=== PATIENT | male | born 1955 | race Caucasian/White ===

== ENCOUNTER → 2018-11-14 | Outpatient (CLI) | payer BC ==
--- NOTE | 2018-11-14 09:53 | XR ---
EXAMINATION TYPE: XR chest 2V DATE OF EXAM: 11/14/2018 COMPARISON: None INDICATION: Presurgical clearance TECHNIQUE: Frontal and lateral views of the chest are obtained. Right costophrenic angles clipped fr om the [id number] FINDINGS: The heart size is normal. The pulmonary vasculature is normal. The lungs are clear. IMPRESSION: 1. No acute pulmonary process.
== END | disposition home or self-care (01) ==
LOC: RADXRMAIN 08:50
PROVIDERS: ATTEND Orthopaedic Surgery Orthopaedic Surgery of the Spine
DX: Z01.818 Encounter for other preprocedural examination (principal); Z01.812 Encounter for preprocedural laboratory examination
CPT/HCPCS: 71046; 87070

== ENCOUNTER 2018-11-26 06:40 | Inpatient (IN) | payer BC, MEDICARE ==
[~2018-11-26 06:40] MED LIST: BACITRACIN 50,000 UNIT, POLYMYXIN B 500,000 UNIT in SODIUM CHLORIDE 0.9% IRRIGATIO 1,00... IRRIGATION ONE; LIDOCAINE 1% 20 ML VIAL (10MG/ML) FOR IV START INTRADERMA PRN; ONDANSETRON 4 MG/2 ML VIAL IVP ONE; ceFAZolin IN SWFI 2 GM/20 ML SYRINGE IVP ONE
[2018-11-26] MEDS: LACTATED RINGERS 1,000 ML IV SCH (07:29)
[2018-11-26] MEDS ORDERED: VANCOMYCIN 1,750 MG in SODIUM CHLORIDE 0.9% 250 ML IVPB ONE (07:45)
[2018-11-26] MEDS ORDERED: VANCOMYCIN 1,750 MG in SODIUM CHLORIDE 0.9% 500 ML 500 ML IVPB ONE (07:45)
[2018-11-26] MEDS ORDERED: ROCURONIUM BROMIDE 10 MG/ML 10 ML VIAL IV ONE (08:08)
[2018-11-26] MEDS ORDERED: fentaNYL (PF) 50 MCG/ML 2 ML AMP ONE (08:08)
[2018-11-26] MEDS ORDERED: PROPOFOL 10 MG/ML 20 ML VIAL IV ONE (08:08)
[2018-11-26] MEDS ORDERED: SUCCINYLCHOLINE CHLORIDE 100 MG/5 ML SYR IV ONE (08:08)
[2018-11-26] MEDS ORDERED: HYDROmorphone (PF) 1 MG/ML ONE (08:08)
[2018-11-26] MEDS ORDERED: NEOSTIGMINE 1 MG/ML 10 ML VIAL ONE (08:08)
[2018-11-26] MEDS ORDERED: LIDOCAINE 1% INJ 10MG/ML (20 ML MDV) ONE (08:08)
[2018-11-26] MEDS ORDERED: MIDAZOLAM 2 MG/2 ML VIAL ONE (08:08)
[2018-11-26] MEDS ORDERED: GLYCOPYRROLATE 0.2 MG/ML 2 ML VIAL ONE (08:08)
[2018-11-26] MEDS ORDERED: ePHEDrine SULFATE/0.9% NACL/PF 50 MG/5 ML SYRINGE IV ONE (08:08)
[2018-11-26] MEDS ORDERED: LIDOCAINE 0.5%-EPI 1:200,000 50 ML VIAL SQ ONE ×3 (09:09)
[2018-11-26] MEDS ORDERED: THROMBIN (BOVINE) 5,000 UNIT VIAL MISCELLANE ONE (09:10)
[2018-11-26] MEDS ORDERED: GELATIN SPONGE,ABSORB (LARGE) 1 EACH SPONGE TOPICAL ONE (09:40)
[2018-11-26] MEDS ORDERED: BUPIVACAIN-EPI 0.5%-1:200,000 30 ML VIAL SQ ONE (09:41)
[2018-11-26] MEDS ORDERED: LACTATED RINGERS 1,000 ML IV ONE (10:50)
[2018-11-26] MEDS ORDERED: BENZOCAINE/MENTHOL LOZENG 1 EACH LOZENGE MUCOUS MEM PRN (11:06)
[2018-11-26] MEDS ORDERED: HYDROmorphone 0.5 MG/0.5 ML SYRINGE IVP PRN (11:06)
[2018-11-26] MEDS ORDERED: MAGNESIUM HYDROXIDE 2,400 MG/10 ML CUP PO PRN (11:06)
[2018-11-26] MEDS ORDERED: HYDROcodone/APAP 5-325MG 1 EACH TAB PO PRN (11:07)
[2018-11-26] MEDS ORDERED: ONDANSETRON 4 MG/2 ML VIAL IVP PRN (11:07)
[2018-11-26] MEDS ORDERED: ASPIRIN-ACET-CAFF 250-250-65MG 1 EACH TAB PO PRN (11:09)
--- NOTE | 2018-11-26 11:16 | P.OP ---
Date of Procedure: 11/26/18 Preoperative Diagnosis: Spondylolisthesis, grade 2 L4 5 Severe spinal stenosis L4 5 Herniated nuclear pulposus L4 5 Lower extremity radiculopathy Lower extremity weakness Neurogenic claudication Postoperative Diagnosis: Same Anesthesia: GETA Pathology: none sent Condition: stable Disposition: PACU Description of Procedure: DESCRIPTION OF PROCEDURE(S): BRIEF OPERATIVE NOTE Preoperative Diagnosis: Spondylolisthesis, grade 2 L4 5 Severe spinal stenosis L4 5 Herniated nuclear pulposus L4 5 Lower extremity radiculopathy Lower extremity weakness Neurogenic claudication Postoperative Diagnosis: Same Procedure: Laminectomy and decompression L4 5 Minimally invasive Posterior lateral decompression and facet fusion L4 5 Minimally invasive Transforaminal lumbar interbody fusion for a 360 fusion L4 5 Discectomy for decompression L4 5 Placement of interbody graft L4 5 Local autogenous bone grafting Harvesting of bone marrow aspirate via the pedicle of L4 Use of Cell Saver Use of bone graft extenders Surgeon: Dr. Rios Audio Director: Inder Faust is present throughout the entire the case persistence during positioning, dissection, exposure, visualization, and all crucial elements of the case as well as closure. Anesthesia: General anesthesia Estimated blood loss: approximately 100 mL Complications: None apparent Components implanted: K2M minimally invasive [place] pedicle screw system with [place] interbody cage and 1 osteoamp sponge and 15 mL of DBX bone fibers to supplement the local autogenous bone graft and bone marrow aspirate Disposition: To recovery room in good stable condition. OPERATIVE INDICATIONS The patient has had long-standing issues in their lower back and lower extremities. he's been having severe worsening in great difficulty with his ability to mobilize and ambulate due to his back and lower extremities. The patient has been through conservative treatment. he is not having any lasting benefit despite aggressive conservative treatment. His found have severe spinal stenosis at L4 5 with spondylolisthesis and dynamic instability at L4 5 which correlate well with his low back and lower extremity symptoms. He is having worsening of his lower extremities and weakness in his bilateral lower extremities which: Well with his low back issues. We discussed various treatment options including surgery, and the patient wishes to proceed with cornejo rgery We discussed the risk, patient's alternatives and benefits of surgery including but not limited to, risk of bleeding risk of infection, risk of need for further surgery, risk of decreased, loss of motion, muscle function, malunion nonunion, hardware failure, nerve damage, paralysis, heart attack, blindness and . OPERATIVE SUMMARY After discussing all the risks, patient alternatives and benefits at length, the patient elected to proceed with surgical intervention, signed informed consent, and presented for their procedure. The patient was seen and examined in the preoperative holding area and the surgical site was marked. The patient was given antibiotics and brought to the operating room. The patient was sedated and intubated by anesthesia in standard fashion. The patient was positioned on to the operating room table in a prone position on the appropriate frame which was well-padded and well molded. We were careful to pad any bony prominences and pressure points. We were careful to maintain the patient's cervical spine and good neutral alignment and position throughout. The patient was prepped and draped in a normal standard fashion. An appropriate timeout and keystone protocol performed. We were able to proceed with the surgery. The local wound area was infiltrated with local anesthetic. I was able utilize C-arm guidance to establish appropriate position over the pedicles bilaterally at the appropriate levelsAt L4 5 . With the appropriate levels confirmed was able to make small stab incisions over the appropriate pedicle sites bilaterally. Utilizing C-arm in his house able to establish a Jamshidi needle over the lateral aspect of the pedicle and advanced the trocar into the pedicle being careful not to breech superiorly inferiorly medially or laterally. Position was confirmed regularly with AP and lateral images on C- arm. I was able to establish the trocar into the pedicle appropriately into the posterior aspect of the vertebral body bilaterally at the appropriate levels. This was done at each of the pedicle positions and each of the vertebrae. at L4 on the right I was able to withdraw approximately 30 mL of bone marrow aspirate for use as autograft later in the case. I was able place the guidewire into the trocar and into the vertebral body appropriately under C-arm guidance. Dissection was taken down over the wire to the appropriate starting position for the screw placed. The appropriate length screw was chosen, threaded over the guidewire and screwed appropriately into the pedicle and vertebral body under C- arm guidance in excellent alignment and position with good bony purchase. This is done at each of the screw sites at the appropriate levelsAt L4 and L5 . With the screws intact I extended the incision to connect the screw hole sites on the most symptomatic sideOn the right . I dissected down to establish access over the pars and lamina to the base of the spinous process. I was able to expose the facet joint. The capsule the facet was taken down and showed some facet arthrosis at the joint. I was able to use a combination of curettes and Kerrison rongeurs and a high-speed drill to take down the facet joint and do a facetectomy. Partial laminectomy was also performed. I was able get excellent foraminal decompression and central decompression with undermining across midline to perform a laminectomy centrally and contralaterally. As able get good central decompression. The ligamentum flavum was taken down to further decompress centrally and at bilateral neural foramen. note was made of severe central and bilateral foraminal stenosis at L4 5, which was remedied with the decompression as stated above. I was able to expose the disc space and visualize the traversing nerve root. Note was made of some disc protrusion at the level causing further compression of the nerve root. I was able to establish a annulotomy at the appropriate level protecting soft tissue and neural structures. Note was made of some disc desiccation at the disc. I performed a complete discectomy with accommodation of curettes and rasps and scrapers. I was able get good endplate preparation at the disc space. I sized for the appropriate size interbody spacer protecting the soft tissue and neural structures. The wound was copiously irrigated and suctioned dry. There is no evidence of any dural tear or leak. I was able to pack the disc space with local autogenous bone graft as well as a small amount of bone graft which was also placed into the interbody cage itself. Protecting the soft tissue structures and neural structures I was able place the interbody cage in good alignment and good position with good fit and fill at the interbody space. His issues was confirmed with C-arm guidance. Good hemostasis maintained. There is no evidence of any dural tear or leak. The wound was irrigated and suctioned dry. With the hardware intact, intraoperative C-arm imaging was again taken which showed good alignment and position of the hardware at the appropriate levelsAt L4 and L5 . We were then able to measure, contour and place the rods and appropriate hardware bilaterally. I was able to place capcrews, tighten them down, and torque them with the torque screwdriver appropriately. I was able to get significant improved spacing at the disc space and improvement of the listhesis as well with the fixation. With this intact I was able to place the local autogenous bone graft with additional bone graft enhancer as necessary into the posterior lateral gutters over the decorticated transverse processes. The remainder of the bone graft was placed over the facet joint on the contralateral side after taking down the facet joint capsule. With the bone graft intact, a stable construct, and good decompression at the appropriate levels, we were able to proceed with closure. Good hemostasis was maintained. There is no evidence of dural tear or leak. The fascia was closed for a ruben ertight closure. he subcuticular tissue was closed with absorbable suture. The wound was cleaned and dried and dressed with the appropriate dressing. The drapes were broken down. The patient was gently rolled back onto their hospital bed being careful to maintain their cervical spine and good neutral alignment and position. They were woken up by anesthesia, extubated, and brought to the recovery room in good stable condition. The patient will be admitted to the hospital for appropriate postoperative care, medical management and monitoring. We will continue to follow them closely about the postoperative course.
[2018-11-26] MEDS: HYDROmorphone 0.5 MG/0.5 ML SYRINGE IVP PRN ×4 (11:46→12:42)
--- NOTE | 2018-11-26 13:21 | FL ---
EXAMINATION TYPE: FL guidance operating room, XR lumbar spine 2 or 3V DATE OF EXAM: 11/26/2018 CLINICAL HISTORY: Low back pain. TECHNIQUE: Fluoroscopy. Lumbar spine intraoperative 2 views. COMPARISON: None. FINDINGS: Fluoroscopic guidance was provided during minimally invasive lumbar fusion surgical proced ure performed by Dr. Rios. A total of 1.25 minutes of fluoroscopic time was utilized in total durin g the procedure and 2 spot images was acquired. Images acquired show placement of posterior bilateral interpedicular rods and screws with metallic di sc material at L4-L5 level. IMPRESSION: As Above.
[2018-11-26] MEDS: HYDROcodone/APAP 5-325MG 1 EACH TAB PO PRN ×2 (15:07→20:22)
[2018-11-26 16:13] VITALS: BMI 33.7
[2018-11-26] MEDS: SODIUM CHLORIDE 0.9% 1,000 ML IV SCH (18:43)
[2018-11-26] MEDS: hydrALAZINE HCL 50 MG TAB PO SCH (20:23)
[2018-11-26] MEDS: MUPIROCIN 2% OINT 22 GM TUBE NASAL SCH (20:23)
[2018-11-26] MEDS ORDERED: NON-FORMULARY DRUG (Fish Oil/Dha/Epa [Fish Oil 1,200 Mg Fish Oil] 1 EACH) PO SCH (21:00)
[2018-11-26] MEDS: HYDROmorphone 1 MG/ML 1 ML SYRINGE IVP PRN (22:23)
[2018-11-27] MEDS: LACTATED RINGERS 1,000 ML IV SCH (00:36)
[2018-11-27] MEDS: SODIUM CHLORIDE 0.9% 1,000 ML IV SCH ×2 (00:36→15:04)
[2018-11-27] MEDS: HYDROcodone/APAP 5-325MG 1 EACH TAB PO PRN ×5 (01:02→19:16)
[2018-11-27] MEDS: HYDROmorphone 1 MG/ML 1 ML SYRINGE IVP PRN ×3 (02:13→09:15)
[2018-11-27] MEDS: SENNOSIDES-DOCUSATE SODIUM 1 EACH TAB PO SCH (09:02)
[2018-11-27 09:05] LABS: Basophils % (A) 0 %; Eosinophils # (A) 0.3 k/uL (0-0.7); Eosinophils % (A) 3 %; HCT 41.3 % (39.0-53.0); HGB 13.5 gm/dL (13.0-17.5); Lymphocytes # (A) 0.8 k/uL (1.0-4.8); Lymphocytes % (A) 6 %; MCH 30.2 pg (25.0-35.0); MCHC 32.7 g/dL (31.0-37.0); MCV 92.2 fL (80.0-100.0); Mean Platelet Volume 7.2; Monocytes # (A) 0.8 k/uL (0-1.0); Monocytes % (A) 6 %; Neutrophils # (A) 11.4 k/uL (1.3-7.7); Neutrophils % (A) 85 %; Platelet Count 171 k/uL (150-450); RBC 4.48 m/uL (4.30-5.90); RDW 12.9 % (11.5-15.5); WBC 13.4 k/uL (3.8-10.6)
[2018-11-27] MEDS: amLODIPine 10 MG TAB PO SCH (09:09)
[2018-11-27] MEDS: METOPROLOL SUCCINATE (ER) 100 MG TAB.ER.24H PO SCH (09:10)
[2018-11-27] MEDS: MULTIVITAMINS, THERA 1 EACH TAB PO SCH (09:10)
[2018-11-27] MEDS: hydrALAZINE HCL 50 MG TAB PO SCH ×2 (09:10→20:38)
[2018-11-27] MEDS: LOSARTAN 50 MG TAB PO SCH (09:10)
[2018-11-27] MEDS: FLUTICASONE 50MCG/SPRAY NASAL 16GM EA NOSTRIL SCH (09:14)
[2018-11-27] MEDS: MUPIROCIN 2% OINT 22 GM TUBE NASAL SCH ×2 (09:14→20:37)
[2018-11-27 09:26] LABS: Anion Gap 6 mmol/L; Blood Urea Nitrogen 10 mg/dL (9-20); Calcium 8.7 mg/dL (8.4-10.2); Carbon Dioxide 28 mmol/L (22-30); Chloride 102 mmol/L (98-107); Glucose 126 mg/dL (74-99); Sodium 136 mmol/L (137-145)
[2018-11-27] MEDS ORDERED: methylPREDNISolone ACETATE 80 MG/ML 1 ML VIAL INTRAARTIC STA (11:18)
--- NOTE | 2018-11-27 11:53 | P.PN ---
Progress Note - Text Progress Note Date: 11/27/18 Postoperative day #1 Patient is seen and examined today at bedside. The patient has some pain around the surgical site as expected. Pain is being controlled with medication. He is only able to get a marginally is having significant pain in his right knee. His history of significant arthritis at his right knee and occasional swelling in his right knee. He is having hard time bearing weight on his right knee. He denies any numbness tingling. He says his back is feeling decent but sore. He denies any new numbness tingling or weakness. Physical Exam Afebrile with stable vital signs Abdomen is soft nontender. Chest has good excursion deep and space expiration The incision site is clean dry and intact. No erythema there is no purulence. The sites are essentially clean there is no active drainage. Extremities have not had neurologic change from prior to surgery. He has sustai roman dorsiflexion plantar flexion and EHL intact Calves and thighs were soft nontender without evidence of DVT. At the right knee there is new effusion at the right knee. There is no erythema there is no significant warmth. He has tension with bending. There is no pain at his calf or thigh. Assessment/Plan Postoperative day #1 status post minimally invasive decompression and fusion at L4 5 for his severe spinal stenosis with spondylolisthesis and neurogenic claudication lower extremity radiculopathy Acute new sterile reactive synovitis at the right knee Patient is progressing as expected from the surgery. In terms of his back and we will continue to try to mobilize him for his back We will continue to increase the patient's mobilization with therapy. The patient had significant increased difficulty with his mobilization due to his right knee. He has reactive sterile synovitis at his right knee due to his significant arthritis and he has having an acute flareup. I think that he can do well with a aspiration of the fluid to release some attention and injection of methylprednisolone to see if that helps alleviate and settle down some of the reactive synovitis at his right knee. I discussed this with him. He has had these injections in the past and has done well with them. I answered his questions regard to the procedure and today at bedside using sterile technique I aspirated approximately 30 mL of sterile straw-colored synovial fluid. There is some mild blood tinging. There is no purulence or no pus. After the aspiration I injected a Kristi 80 mg of methylprednisolone. Patient tolerated well and had some relief of his symptoms. It is okay for him to continue to mobilize with weightbearing as tolerated right leg. We will continue pain control with oral or IV medications. We'll continue to follow patient closely.
--- NOTE | 2018-11-27 19:56 | CONS ---
CONSULTATION DATE OF CONSULTATION: November 27, 2018. REASON FOR CONSULTATION: Medical management requested by Dr. Rios. CONSULTATIONS: This is a pleasant 63 -year-old patient of Dr. Angie Willson. Chronic stable medical conditions include hypertension, hyperlipidemia, osteoarthritis. The patient has significant lumbar pathology with pain radiating down to both the legs making it some trouble walking. This has been going on for quite some time. He has tried different pain medication, not helping. The symptoms are worse with activity, better with rest and the patient's walking was affected significantly. The patient's surgical intervention for the same. Post surgery some pain is present. No nausea, vomiting. The patient did sit at the edge of the bed. Earlier today, patient's right knee became inflamed. Dr. Rios happened to be there and the knee was drained. Some steroid injection was given. The patient has arthritis of both the knees. No fever. No chills. REVIEW OF SYSTEMS: CONSTITUTIONAL: None. HEENT: None. RESPIRATORY: None. GASTROINTESTINAL: None. GENITOURINARY: None. MUSCULOSKELETAL: Arthritic pain in different joints. DERMATOLOGICAL, HEMATOLOGIC, LYMPHATIC: none. PSYCHIATRY: None. NEUROLOGICAL: None. PAST MEDICAL HISTORY: Of hypertension, hyperlipidemia, osteoarthritis, CA prostate, treated with surgery. PAST SURGICAL HISTORY: Joint replacement, prostate surgery, right hip replacement, prostatectomy, retinal detachment, right knee cartilage removed. SOCIAL HISTORY: No smoking. Smokes cigar occasionally. 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 FAMILY HISTORY: Reviewed, noncontributory presentation. HOME MEDICATIONS: 1. Hydralazine 50 mg b.i.d. 2. Amlodipine 10 mg p.o. daily. 3. Bactroban 2% topically nasal b.i.d. 4. Centrum Silver 1 tablet p.o. daily. 5. Toprol-XL 100 mg p.o. daily. 6. Cozaar 100 mg p.o. daily. 7. Ibuprofen 600 mg b.i.d. p.r.n. 8. Flonase 1 spray each nostril daily. 9. Fish oil 1 capsule p.o. b.i.d. 10.Excedrin Extra Strength 1 tablet p.o. b.i.d. p.r.n. ALLERGIES: None. PHYSICAL EXAMINATION: VITAL SIGNS: Temperature 99.1, pulse 99, respiratory rate 14, blood pressure 138/74, pulse ox 94 percent on room air. GENERAL APPEARANCE: Well built, BMI 33, lying in bed, awake. EYES: Pupils equal. Conjunctivae normal. HEENT: External appearance of nose and ears normal. Oral cavity normal. NECK: JVD not raised. Mass not palpable. RESPIRATORY: Effort normal. LUNGS: Fair air entry. CARDIOVASCULAR: 1st and 2nd sounds normal. No edema. ABDOMEN: Soft, nontender. Liver and spleen not palpable. LYMPHATICS: No lymph nodes palpable in the neck and axilla. PSYCHIATRY: Alert and oriented x3. Mood and affect is normal. NEUROLOGICAL: Pupils equal. Cranial nerves grossly intact. Power and sensation grossly intact. INVESTIGATIONS: White count 13.4, hemoglobin 13.5. Potassium 4.0. BUN and creatinine is normal. ASSESSMENT: 1. Primary osteoarthritis multiple joints. 2. Hyperlipidemia. 3. Essential hypertension. 4. Obesity, BMI 33.0. 5. Status post lumbar surgery for severe spinal stenosis L4-L5 lower extremity radiculopathy and weakness and neurogenic claudication. PLAN: Home medications resumed. Pain control is in place. Encouraged activity. Patient also admitted. Venodyne boots for DVT prophylaxis. Care was discussed with the patient. Questions were answered. Thank you Dr. Rios. Copy to Angie Willson. MMODL / IJN: [id number] /
[2018-11-28] MEDS: HYDROcodone/APAP 5-325MG 1 EACH TAB PO PRN ×4 (00:14→23:03)
[2018-11-28] MEDS: LACTATED RINGERS 1,000 ML IV SCH (07:48)
[2018-11-28] MEDS: METOPROLOL SUCCINATE (ER) 100 MG TAB.ER.24H PO SCH (08:17)
[2018-11-28] MEDS: hydrALAZINE HCL 50 MG TAB PO SCH ×2 (08:17→21:21)
[2018-11-28] MEDS: amLODIPine 10 MG TAB PO SCH (08:17)
[2018-11-28] MEDS: LOSARTAN 50 MG TAB PO SCH (08:17)
[2018-11-28] MEDS: SENNOSIDES-DOCUSATE SODIUM 1 EACH TAB PO SCH (08:18)
[2018-11-28] MEDS: SODIUM CHLORIDE 0.9% 1,000 ML IV SCH (08:18)
[2018-11-28] MEDS: MUPIROCIN 2% OINT 22 GM TUBE NASAL SCH ×2 (08:24→21:21)
[2018-11-28] MEDS: FLUTICASONE 50MCG/SPRAY NASAL 16GM EA NOSTRIL SCH (08:24)
--- NOTE | 2018-11-28 09:06 | P.PN ---
Progress Note - Text Progress Note Date: 11/28/18 Orthopedic Spine Patient is a pleasant 63-year-old who is seen and examined at the bedside following posterior lateral decompression and fusion performed Saturday. Patient states they are doing well postsurgically. Yesterday he was experiencing significant pain and swelling at the right knee. He underwent drainage with injection of the right knee. He continues to have some mild swelling of the right knee. He feels his pain is much better controlled. He has been able to transfer to the bedside commode. He is passing gas but has not had a bowel movement postoperatively. He does feel he is improving as compared to yesterday. His pain continues to be adequately controlled. Currently does not complain of nausea, vomiting, fever, or chills. Patient is eating and voiding freely without difficulty. Physical Exam Lumbar Fusion: Status post surgical day number 2 Patient is awake, alert, and oriented 3 Vital signs stable Good chest excursion with deep inspiration and expiration Dorsiflexion, plantarflexion, and extensor hallucis longus positive sustained bilaterally No signs or symptoms of DVT; no calf pain; pneumatic cuffs intact bilateral lower extremities Dressing is clean, dry, and intact; no erythema, purulence, or signs of infection Evidence of some mild swelling over the right knee most significantly at the anterior lateral knee No significant pain with palpation over the right knee No evidence of significant erythema, bruising, or obvious sign of infection of the right knee Neurovascularly intact bilaterally lower extremities Assessment: L4-5 Minimally invasive posterior lateral decompression and fusion with transforaminal lumbar interbody fusion Low back pain L4-5 spondylolisthesis Lower extremity radiculopathy and weakness Neurogenic claudication Right knee reactive synovitis Plan: 1. Ambulate as tolerated; work with Physical Therapy to increase mobilization 2. Continue pain control with IV and oral medications; we'll plan to start weaning the patient off of IV pain medications in anticipation for discharge; patient continues to improve we may plan for discharge home as early as tomorrow, 11/29/2018 3. Dressing changed to Telfa and Tegaderm 4. Medical management can continue to manage patient for patient's other medical issues 5. We will continue to follow the patient closely 6. Patient can follow-up with Inder Mills PA-C or Dr. Ivan Rios at [facility] in 2-3 weeks following discharge
[2018-11-28] MEDS: MULTIVITAMINS, THERA 1 EACH TAB PO SCH (12:14)
--- NOTE | 2018-11-28 18:53 | PN ---
PROGRESS NOTE DATE OF SERVICE: 11/28/2018 PRESENTING COMPLAINT: Back surgery. INTERVAL HISTORY: Patient is status post lumbar surgery, doing better; did sit up on a chair. Did walk a few steps. Has not had a bowel movement. Pain is somewhat better controlled. Did tolerate some diet. at the bedside. REVIEW OF SYSTEMS: Done for constitutional, cardiovascular, GI, pulmonary; relevant findings as above. CURRENT MEDICATIONS: Reviewed. They include Dilaudid. PHYSICAL EXAMINATION: Temperature 98.4, pulse 57, respiration 18, blood pressure 143/62, pulse 95% on room air. GENERAL APPEARANCE: Sitting up on a chair, comfortable. EYES: Pupils equal. Conjunctivae normal. NECK: JVD not raised. Mass not palpable. RESPIRATORY: Effort normal. Lungs are clear. CARDIOVASCULAR: First and second sounds normal. No edema. ABDOMEN: Soft, non-tender. Liver and spleen not palpable. PSYCHIATRY: Alert and oriented x3. Mood and affect normal. INVESTIGATIONS: No blood work from today. ASSESSMENT: 1. Status post lumbar surgery for severe spinal stenosis, L4, L5, lower extremity radiculopathy, weakness and neurogenic claudication. 2. Obesity; body mass index 33. 3. Essential hypertension. 4. Hyperlipidemia. 5. Primary osteoarthritis. PLAN: Continue current medication and treatment plan. Activity encouraged. Care was discussed with the patient and his . ARUN / CIERRA: [id number] /
[2018-11-29] MEDS: HYDROcodone/APAP 5-325MG 1 EACH TAB PO PRN ×5 (04:21→21:06)
[2018-11-29] MEDS: MUPIROCIN 2% OINT 22 GM TUBE NASAL SCH ×2 (08:23→21:00)
[2018-11-29] MEDS: FLUTICASONE 50MCG/SPRAY NASAL 16GM EA NOSTRIL SCH (08:23)
[2018-11-29] MEDS: amLODIPine 10 MG TAB PO SCH (08:24)
[2018-11-29] MEDS: METOPROLOL SUCCINATE (ER) 100 MG TAB.ER.24H PO SCH (08:24)
[2018-11-29] MEDS: LOSARTAN 50 MG TAB PO SCH (08:24)
[2018-11-29] MEDS: hydrALAZINE HCL 50 MG TAB PO SCH ×2 (08:24→20:50)
[2018-11-29] MEDS: SENNOSIDES-DOCUSATE SODIUM 1 EACH TAB PO SCH (08:24)
--- NOTE | 2018-11-29 10:01 | P.PN ---
Progress Note - Text Progress Note Date: 11/29/18 Orthopedic Spine Patient is a pleasant 63-year-old who is seen and examined at the bedside following posterior lateral decompression and fusion performed Saturday. Patient states they are doing well postsurgically. Since being seen and examined yesterday he has been able to increase his mobility further. He has been able to transfer to the bedside commode at bedside chair. He continues work with physical therapy. He continues to have some mild swelling of the right knee. He feels his pain is much better controlled. He does feel he is improving as compared to yesterday. His pain continues to be adequately controlled. Currently does not complain of nausea, vomiting, fever, or chills. Patient is eating and voiding freely without difficulty. If he is able to continue improving today he feels he would be ready for discharge home tomorrow. He has been using a walker to aid in ambulation. Physical Exam Lumbar Fusion: Status post surgical day number 3 Patient is awake, alert, and oriented 3 Vital signs stable Good chest excursion with deep inspiration and expiration Dorsiflexion, plantarflexion, and extensor hallucis longus positive sustained bilaterally No signs or symptoms of DVT; no calf pain; pneumatic cuffs intact bilateral lower extremities Dressing is clean, dry, and intact; no erythema, purulence, or signs of infection Evidence of some mild swelling over the right knee most significantly at the anterior lateral knee No significant pain with palpation over the right knee No evidence of significant erythema, bruising, or obvious sign of infection of the right knee Neurovascularly intact bilaterally lower extremities Assessment: L4-5 Minimally invasive posterior lateral decompression and fusion with transforaminal lumbar interbody fusion Low back pain L4-5 spondylolisthesis Lower extremity radiculopathy and weakness Neurogenic claudication Right knee reactive synovitis Plan: 1. Ambulate as tolerated; work with Physical Therapy to increase mobilization 2. Continue pain control with IV and oral medications; we'll continue weaning the patient off of IV pain medications in anticipation for discharge; patient continues to improve we may plan for discharge home as early as tomorrow, 11/30/2018 3. Dressing to remain intact with Telfa and Tegaderm 4. Medical management can continue to manage patient for patient's other medical issues 5. We will continue to follow the patient closely 6. Patient can follow-up with Inder Mills PA-C or Dr. Ivan Rios at [facility] in 2-3 weeks following discharge
[2018-11-29] MEDS: MULTIVITAMINS, THERA 1 EACH TAB PO SCH (10:58)
--- NOTE | 2018-11-29 22:55 | PN ---
PROGRESS NOTE DATE OF SERVICE: 11/29/2018 PRESENTING COMPLAINT: Back surgery. INTERVAL HISTORY: Patient is status post lumbar surgery. Continues to improve. Did walk quite a bit today. Pain is much better controlled. Tolerating a diet. No fever. No chills. Overall feeling better. REVIEW OF SYSTEMS: Done for constitutional, cardiovascular, GI, pulmonary, musculoskeletal and relevant findings as above. CURRENT MEDICATIONS: Reviewed. PHYSICAL EXAMINATION: VITAL SIGNS: Temperature 98.5, pulse 98, respiration 16, blood pressure 115/88, pulse ox 93 percent on room air. GENERAL APPEARANCE: Sitting up comfortable. EYES: Pupils equal. Conjunctivae normal. NECK: JVD not raised. Mass not palpable. RESPIRATORY: Effort normal. LUNGS are clear. CARDIOVASCULAR: First and second sounds normal. No edema. ABDOMEN: Soft, nontender. Liver and spleen not palpable. PSYCHIATRY: Alert and oriented x3. Mood and affect normal. INVESTIGATIONS: No blood work from today. ASSESSMENT: 1. Status post lumbar surgery for severe spinal stenosis, L4-L5 lower extremity radiculopathy, weakness and neurogenic claudication. 2. Obesity BMI 33. 3. Essential hypertension. 4. Hyperlipidemia. 5. Primary osteoarthritis. PLAN: Overall patient is doing much better. Care was discussed with the patient. MMODL / IJN: [id number] /
[2018-11-30] MEDS: HYDROcodone/APAP 5-325MG 1 EACH TAB PO PRN ×4 (01:56→15:41)
[2018-11-30 07:46] VITALS: RESP 15
[2018-11-30] MEDS: FLUTICASONE 50MCG/SPRAY NASAL 16GM EA NOSTRIL SCH (08:00)
[2018-11-30] MEDS: MUPIROCIN 2% OINT 22 GM TUBE NASAL SCH (08:00)
[2018-11-30] MEDS: METOPROLOL SUCCINATE (ER) 100 MG TAB.ER.24H PO SCH (08:00)
[2018-11-30] MEDS: hydrALAZINE HCL 50 MG TAB PO SCH (08:01)
[2018-11-30] MEDS: amLODIPine 10 MG TAB PO SCH (08:01)
[2018-11-30] MEDS: LOSARTAN 50 MG TAB PO SCH (08:01)
[2018-11-30] MEDS: SENNOSIDES-DOCUSATE SODIUM 1 EACH TAB PO SCH (08:01)
--- NOTE | 2018-11-30 11:26 | P.DS ---
<Inder Mills - Last Filed: 11/30/18 11:22> Providers Expected date of discharge: 11/30/18 - Discharge Diagnosis(es) (1) Spondylolisthesis, lumbar region Status: Acute (2) Radiculopathy with lower extremity symptoms Status: Acute (3) Lower extremity weakness Status: Acute (4) Right knee pain Status: Acute (5) Status post lumbar spine surgery for decompression of spinal cord Status: Acute (6) Hypertension Status: Acute (7) Hyperlipidemia Status: Acute Hospital Course: This is a pleasant 63-year-old male who presented with L4-5 grade 2 spondylolisthesis, herniated nucleus pulposus, and severe spinal canal stenosis with lower extremity weakness and radiculopathy and neurogenic claudication who failed outpatient conservative therapy. He was admitted for an L4-5 minimally invasive posterior lateral decompression and fusion with transforaminal lumbar interbody fusion. The patient tolerated the procedure well and did well postoperatively. He was having some difficulty with reactive synovitis of the right knee with swelling and pain postoperatively. He went drainage and injection in the right knee and has had significant improvement of his symptoms since that time. He has been able to increase his ambulation. His pain at the surgical sites and at the right knee has been adequately controlled. He's been able to adequately to the hallways. He feels he is ready for discharge. Condition on day of discharge stable. Patient will be discharged home. Patient was cleared preoperatively for surgery by Dr. Willson. Patient currently denies any nausea, vomiting, fever, or chills. Patient is eating and voiding freely without difficulty. Patient may shower Tegaderm dressing intact. Patient may remove Tegaderm dressing in 1-2 days and shower without a dressing at that time. Patient should keep Steri-Strips intact and allow them to fall off naturally. Patient should refrain from driving until at least after their first follow-up appointment in the office. Patient should avoid excessive bending, lifting, and twisting; no lifting greater than 10 pounds. MAPS has been reviewed today, 11/30/2018, with an Overall Overdose Risk Score of 000. Patient is not in the MAPS system. An "Opiod Start Talking" Form has been signed by the patient and myself in place in the patient's chart. A prescription has been written for Lueders 5 mg/325 mg take 1-2 tabs every 6 hours as needed for pain, dispensed #56. Patient may resume other previously prescribed home medications while avoiding anti-inflammatories over the first 6 weeks postoperatively. Physical Exam on day of discharge: Patient is awake, alert, and oriented 3 Vital signs stable Good chest excursion with deep inspiration and expiration Abdomen soft nontender No signs or symptoms of DVT; no calf pain Extensor hallucis longus, plantarflexion, and dorsiflexion positive sustained bilateral lower extremities No significant swelling over the right knee No significant pain on palpation of the right knee No evidence of erythema or bruising over the right knee Active range of motion right knee without significant difficulty Incision is clean, dry, and intact; no erythema, purulence, or signs of infection Tegaderm dressing and non-stick Telfa intact Procedures: L4-5 minimally invasive posterior lateral decompression and fusion with t ransforaminal lumbar interbody fusion Drainage and injection at the right knee Patient Condition at Discharge: Stable Plan - Discharge Summary Discharge Rx Participant: No New Discharge Prescriptions: New Hydrocodone/Acetaminophen [Lueders 5-325] 1 - 2 each PO Q6HR PRN #56 tab PRN Reason: Pain Continue hydrALAZINE HCL [Apresoline] 50 mg PO BID Aspirin/Acetaminophen/Caffeine [Excedrin Extra Strength Caplet] 1 tab PO BID PRN PRN Reason: Pain Losartan Potassium [Cozaar] 100 mg PO QAM Fluticasone Nasal [place] [Flonase Nasal [place]] 1 spray EA NOSTRIL DAILY amLODIPine BESYLATE 10 mg PO QAM Metoprolol Succinate (ER) [Toprol XL] 100 mg PO QAM Multivit-Min/FA/Lycopen/Lutein [Centrum Silver Men Tablet] 1 tab PO DAILY Fish Oil/Dha/Epa [Fish Oil 1,200 mg Fish Oil] 1 cap PO BID Mupirocin 2% Oint [Bactroban 2% Oint] 1 applic NASAL BID Discontinued Ibuprofen 600 mg PO BID PRN PRN Reason: Pain Discharge Medication List Aspirin/Acetaminophen/Caffeine [Excedrin Extra Strength Caplet] 1 tab PO BID PRN 11/14/18 [History] Fish Oil/Dha/Epa [Fish Oil 1,200 mg Fish Oil] 1 cap PO BID 11/14/18 [History] Fluticasone Nasal [place] [Flonase Nasal [place]] 1 spray EA NOSTRIL DAILY 11/14/18 [History] Losartan Potassium [Cozaar] 100 mg PO QAM 11/14/18 [History] Metoprolol Succinate (ER) [Toprol XL] 100 mg PO QAM 11/14/18 [History] Multivit-Min/FA/Lycopen/Lutein [Centrum Silver Men Tablet] 1 tab PO DAILY 11/14/18 [History] amLODIPine BESYLATE 10 mg PO QAM 11/14/18 [History] hydrALAZINE HCL [Apresoline] 50 mg PO BID 11/14/18 [History] Mupirocin 2% Oint [Bactroban 2% Oint] 1 applic NASAL BID 11/25/18 [History] Hydrocodone/Acetaminophen [Lueders 5-325] 1 - 2 each PO Q6HR PRN #56 tab 11/30/18 [Rx] Follow up Appointment(s)/Referral(s): Inder Mills, MADAN [PHYSICIAN [employer] WORKER] - 2 Weeks (Patient may follow-up with Inder Mills PA-C or Dr. Ivan Rios at [facility] in 2-3 weeks following discharge. ) Vernell Mcmahan, [NON-STAFF] - As Needed Patient Instructions/Handouts: Laminectomy (DC) Activity/Diet/Wound Care/Special Instructions: 1. Patient may shower with Tegaderm dressing intact. 2. Patient may remove Tegaderm dressing in 3 days and shower without a dressing at that time. 3. Patient should keep Steri-Strips intact and allow them to fall off naturally. 4. Patient should refrain from driving until at least after their first follow- up appointment in the office. 5. Patient should avoid excessive bending, twisting, and lifting; no lifting greater than 10 pounds 6. Take medications as prescribed 7. Do not soak in tub Discharge Disposition: HOME SELF-CARE <Leticia Rios - Last Filed: 12/01/18 08:40> Providers Date of admission: 11/26/18 06:40 Attending physician: Leticia Rios Consults: 11/26/18 11:07 Consult Physician Routine Consulting Provider: Colby Eaton Consult Reason/Comments: Medical management Do you want consulting provider notified?: Yes Primary care physician: Angie Willson [facility] Course: Pt seen and exmined. Improving well. wound clear. for d/c home today
[2018-11-30] MEDS: MULTIVITAMINS, THERA 1 EACH TAB PO SCH (11:45)
[2018-11-30 14:59] VITALS: BP 153/74; PULSE 65; TEMP 98.4
--- NOTE | 2018-12-01 04:47 | PN ---
PROGRESS NOTE DATE OF SERVICE: 11/30/2018 PRESENTING COMPLAINT: Back pain. INTERVAL HISTORY: Patient is status post lumbar surgery, doing well, walking better. Pain is well controlled. Did not have a bowel movement. REVIEW OF SYSTEMS: Done for constitutional, cardiovascular, GI, pulmonary, musculoskeletal and relevant findings as above. CURRENT MEDICATIONS: Reviewed. PHYSICAL EXAMINATION: VITAL SIGNS: Temperature 98.4, pulse 55, respiratory rate 15, blood pressure 153/74, pulse ox 96% on room air. GENERAL APPEARANCE: Comfortable. EYES: Pupils equal. Conjunctivae normal. NECK: JVD not raised. Mass not palpable. RESPIRATORY: Effort normal. LUNGS are clear. CARDIOVASCULAR: First and second sounds normal. No edema. ABDOMEN: Soft, nontender. Liver and spleen not palpable. PSYCHIATRY: Alert and oriented x3. Mood and affect normal. INVESTIGATIONS: No blood work from today. ASSESSMENT: 1. Status post lumbar surgery. 2. Obesity, BMI 33. 3. Essential hypertension. 4. Hyperlipidemia. 5. Primary osteoarthritis. 6. Constipation from pain medication. PLAN: This was discussed with the patient and . The patient to take a laxative when he gets home. If not, he should seek medical attention. Otherwise, patient is totally asymptomatic, doing well. Thank you, Dr. Rios. MMODL / IJN: [id number] /
== END 2018-11-30 16:08 | DRG 455 ==
LOC: 2ORMAIN 06:40 → 4SSUR 12:51
PROVIDERS: ADMIT Orthopaedic Surgery Orthopaedic Surgery of the Spine; ATTEND Orthopaedic Surgery Orthopaedic Surgery of the Spine
PROC: 0SG0071 Fusion of Lumbar Vertebral Joint with Autologous Tissue Substitute, Posterior Approach, Posterior Column, Open Approach (ICD-10-PCS; 2018-11-26)
PROC: 0ST20ZZ Resection of Lumbar Vertebral Disc, Open Approach (ICD-10-PCS; 2018-11-26)
PROC: 0SG00AJ Fusion of Lumbar Vertebral Joint with Interbody Fusion Device, Posterior Approach, Anterior Column, Open Approach (ICD-10-PCS; principal; 2018-11-26 08:00)
PROC: 0S9C3ZX Drainage of Right Knee Joint, Percutaneous Approach, Diagnostic (ICD-10-PCS; 2018-11-27)
PROC: 3E0U33Z Introduction of Anti-inflammatory into Joints, Percutaneous Approach (ICD-10-PCS; 2018-11-27)
DX: M48.062 Spinal stenosis, lumbar region with neurogenic claudication (principal); M43.16 Spondylolisthesis, lumbar region; M51.16 Intervertebral disc disorders with radiculopathy, lumbar region; I10 Essential (primary) hypertension; E78.5 Hyperlipidemia, unspecified; F17.290 Nicotine dependence, other tobacco product, uncomplicated; E66.9 Obesity, unspecified; M19.91 Primary osteoarthritis, unspecified site; M65.9 Synovitis and tenosynovitis, unspecified; K59.03 Drug induced constipation; T39.1X5A Adverse effect of 4-Aminophenol derivatives, initial encounter; R53.1 Weakness; Z68.33 Body mass index [BMI] 33.0-33.9, adult; Z79.899 Other long term (current) drug therapy; Z85.46 Personal history of malignant neoplasm of prostate; Z96.641 Presence of right artificial hip joint
CPT/HCPCS: 72100; 80048; 85025; 86850; 86900; 86901

== ENCOUNTER 2023-08-30 21:21 | Inpatient (IN) | payer BC, MEDICARE ==
[2023-08-30] MEDS ORDERED: SODIUM CHLORIDE 0.9% 1,000 ML IV STA (21:44)
--- NOTE | 2023-08-30 22:01 | ED ---
General Adult HPI - General Chief complaint: Weakness Stated complaint: Fever Time Seen by Provider: 08/30/23 21:23 Source: EMS Mode of arrival: EMS Limitations: no limitations - History of Present Illness Initial comments: Dictation was produced using [email or web address] dictation software. please excuse any grammatical, word or spelling errors. Chief Complaint: 68-year-old male presents to the emergency department for leg pain and low blood pressure History of Present Illness: Patient is a 68-year-old male he is a poor historian. Patient apparently resides at a [facility]. He states that he is here for shortness of breath and leg pain. He was doing fine in regards to his leg pain throughout most of the day. shelter staff grabbed that his leg and that's when he started to have pain. Patient has chronic leg pain. Is also having some shortness of breath for the last several hours. He was restarted on his Lasix. Patient has also been having fever. States that several individuals at the [facility] are sick with viral illnesses. She denies any chest pain. Denies any cough. Denies abdominal pain or diarrhea. The ROS documented in this emergency department record has been reviewed and confirmed by me. Those systems with pertinent positive or negative responses have been documented in the HPI. All other systems are other negative and/or noncontributory. - Related Data Home Medications Medication Instructions Recorded Confirmed Fluticasone Nasal Crawford [Flonase 1 spr EA NOSTRIL DAILY@0800 11/14/18 08/30/23 Nasal Crawford] Losartan Potassium [Cozaar] 100 mg PO DAILY@0800 11/14/18 08/30/23 hydrALAZINE HCL [Apresoline] 50 mg PO BID@0800,1700 11/14/18 08/30/23 Acetaminophen Tab [Tylenol] 650 mg PO Q4H PRN 08/30/23 08/30/23 Clobetasol E 0.05% Cream 1 applic TOPICAL BID@0800,1700 08/30/23 08/30/23 Fluconazole [Diflucan] 100 mg PO DAILY@0800 08/30/23 08/30/23 Furosemide [Lasix] 40 mg PO DAILY@0800 08/30/23 08/30/23 Insulin Aspart [NovoLOG] 10 units SQ AC-TID 08/30/23 08/30/23 Insulin Aspart [NovoLOG] See Protocol SQ ACHS 08/30/23 08/30/23 Insulin Detemir (Levemir) [Levemir] 30 unit SQ HS 08/30/23 08/30/23 Magnesium Hydroxide [Milk of 7,200 mg PO DIRECTED PRN 08/30/23 08/30/23 Magnesia Concentrate] Melatonin 5 mg PO HS 08/30/23 08/30/23 Na Phos,M-B/Na Phos,Di-Ba [Fleet 133 ml RECTAL DIRECTED PRN 08/30/23 08/30/23 Adult] Rivaroxaban [Xarelto] 20 mg PO DAILY@0800 08/30/23 08/30/23 bisacodyL [Dulcolax] 10 mg RECTAL Q24H PRN 08/30/23 08/30/23 dilTIAZem HCL [Cardizem LA] 180 mg PO DAILY@0800 08/30/23 08/30/23 methylPREDNISolone [Medrol] 16 mg PO DAILY@0800 08/30/23 08/30/23 polyethylene glycoL 3350 [Miralax] 17 gm PO BID@0800,1700 08/30/23 08/30/23 Allergies Allergy/AdvReac Type Severity Reaction Status Date / Time No Known Allergies Allergy Verified 08/30/23 22:16 Review of Systems ROS Statement: Those systems with pertinent positive or pertinent negative responses have been documented in the HPI. ROS Other: All systems not noted in ROS Statement are negative. Past Medical History Past Medical History: Cancer, Hyperlipidemia, Hypertension, Osteoarthritis (OA) Additional Past Medical History / Comment(s): has numbness virgilio legs-rt leg worse,hx basal cell CA removed from face,prostate CA-no radiation or chemo,fx back-in brace for 3 mos History of Any Multi-Drug Resistant Organisms: None Reported Past Surgical History: Joint Replacement, Orthopedic Surgery, Prostate Surgery, Tonsillectomy Additional Past Surgical History / Comment(s): rt hip replacement,prostatectomy,retinal reattachment,rt knee cartilage removed Past Anesthesia/Blood Transfusion Reactions: No Reported Reaction Additional Past Anesthesia/Blood Transfusion Reaction / Comment(s): no hx blood transfusion Past Psychological History: No Psychological Hx Reported Smoking Status: Never smoker Past Alcohol Use History: None Reported Past Drug Use History: None Reported - Past Family History Mother Family Medical History: No Reported History Daughter(s) Family Medical History: No Reported History General Exam - General Exam Comments Initial Comments: PHYSICAL EXAM: General Impression: Alert and oriented x3, not in acute distress, obese HEENT: Normocephalic atraumatic, extra-ocular movements intact, pupils equal and reactive to light bilaterally, mucous membranes moist. Cardiovascular: Heart regular rate and rhythm Chest: Able to complete full sentences, no retractions, no tachypnea, decreased breath sounds bilaterally which may be secondary to body habitus Abdomen: abdomen soft, non-tender, non-distended, no organomegaly Musculoskeletal: Pulses present and equal in all extremities, 2+ pitting edema Motor: no focal deficits noted Neurological: CN II-XII grossly intact, no focal motor or sensory deficits noted Skin: Intact with no visualized rashes Psych: Normal affect and mood Limitations: no limitations Course Vital Signs 08/30/23 08/30/23 08/30/23 21:24 21:30 22:00 Temperature 99.1 F Pulse Rate 90 83 Respiratory 20 20 Rate Blood Pressure 82/47 83/21 80/50 O2 Sat by Pulse 90 L 90 L 88 L Oximetry Fraction of Inspired Oxygen (FIO2) 08/30/23 08/30/23 08/30/23 22:29 23:00 23:30 Temperature Pulse Rate 86 84 Respiratory 22 20 20 Rate Blood Pressure 74/41 88/46 82/46 O2 Sat by Pulse 94 L 96 94 L Oximetry Fraction of Inspired Oxygen (FIO2) 08/31/23 08/31/23 08/31/23 00:00 00:30 00:45 Temperature Pulse Rate Respiratory Rate Blood Pressure 72/46 56/38 65/40 O2 Sat by Pulse 95 Oximetry Fraction of Inspired Oxygen (FIO2) 08/31/23 08/31/23 08/31/23 01:29 01:30 01:45 Temperature Pulse Rate 86 80 Respiratory Rate Blood Pressure 84/50 75/39 O2 Sat by Pulse 96 100 Oximetry Fraction of 100 100 Inspired Oxygen (FIO2) 08/31/23 08/31/23 08/31/23 02:00 02:15 02:30 Temperature Pulse Rate 87 85 91 Respiratory Rate Blood Pressure 80/34 60/34 70/42 O2 Sat by Pulse 100 100 100 Oximetry Fraction of Inspired Oxygen (FIO2) 08/31/23 08/31/23 08/31/23 02:45 03:18 03:20 Temperature Pulse Rate 95 96 Respiratory Rate Blood Pressure 117/62 110/38 O2 Sat by Pulse 96 100 Oximetry Fraction of 80 Inspired Oxygen (FIO2) 08/31/23 08/31/23 08/31/23 03:45 04:00 04:36 Temperature Pulse Rate 85 88 Respiratory 23 Rate Blood Pressure 30/10 85/34 O2 Sat by Pulse 92 L 99 Oximetry Fraction of Inspired Oxygen (FIO2) 08/31/23 04:40 Temperature Pulse Rate Respiratory Rate Blood Pressure O2 Sat by Pulse Oximetry Fraction of 80 Inspired Oxygen (FIO2) - Reevaluation(s) Reevaluation #1: 08/31/23 00:32 Clinical presentation concerning for sepsis due to abnormal white blood cell count along with findings of pneumonia on x-ray. Patient did not get 30 mL per KG bolus providing a lot of weight due to concerning history of possible heart failure. EKG Findings - EKG Comments: EKG Findings:: My EKG interpretation: Ventricular rate 88, significant artifact ache he interpretation limited. QRS is 70, QTC 419. No IA prolongation, no QTC prolongation, no ST or T-wave changes noted. Overall this EKG is nonspecific Procedures - Central Line Placement Right Femoral Consent Obtained: verbal consent, emergent situation Patient Placed on Monitor/Pulse Ox: Yes MD Prep: mask, gown, gloves Central Line Prep: Chlorhexidine scrub Ultrasound Used for Placement: Yes Central Line Lumen Inserted: triple Bloods Obtained for Lab: No Central Line Position: good blood return, all ports aspirated, flushed, capped, sutured in place with 3-0 nylon Dressing Applied: Tegaderm Post Procedure X-Ray: tip of catheter in good position Patient Tolerated Procedure: well Complications: none - Intubation Sedative: Etomidate Paralytic: Rocuronium Laryngoscope: fiber optic video scope Size: 4 Assist Device Used: fiber optic device ET Tube Size: 8 ET Tube Uncuffed: No Tube Secured Depth (cm): 26 Tube Secured Location: lips Tube Placement Confirmation: visualized tube passing through cords, equal breath sounds bilaterally, no breath sounds over epigastrium, confirmation by capnometry Patient Tolerated Procedure: well Intubation Complications: none - Sepsis Sepsis Focused Exam #1 Time Sepsis Criteria Met: 00:30 Sepsis Focused Exam Date: 08/31/23 Sepsis Focused Exam Time: 00:31 Sepsis Focused Exam Complete: Yes Vital Signs & RN Notes Reviewed: Yes Capillary Refill: < 2 Seconds: Fingers, Toes Peripheral Pulses: Normal: Radial (R), Radial (L), Posterior Tibialis (R), Posterior Tibialis (L), Dorsalis Pedis (R), Dorsalis Pedis (L) Skin Color: Normal for Patient Respiratory Exam: normal lung sounds Cardiovascular Exam: regular rate Medical Decision Making - Medical Decision Making Was pt. sent in by a medical professional or institution (, PA, SURGEON/PRESIDENT, urgent care, hospital, or [facility]...) When possible be specific @ -No Did you speak to anyone other than the patient for history (EMS, parent, family, police, friend...)? What history was obtained from this source @ -History obtained from EMS. History also obtained from family at the bedside states that he was admitted to [facility] recently for bullous pemphigoid and pneumonia. He's been on high-dose steroids recently. Did you review nursing and triage notes (agree or disagree)? Why? @ -I reviewed and agree with nursing and triage notes Were old charts reviewed (outside hosp., previous admission, EMS record, old EK G, old radiological studies, urgent care reports/EKG's, [facility] records)? Report findings @ -No old charts were reviewed Differential Diagnosis (chest pain, altered mental status, abdominal pain women, abdominal pain men, vaginal bleeding, musculoskeletal, weakness, fever, dyspnea, syncope, headache, dizziness, GI bleed, back pain, seizure, CVA, palpatations, mental health)? @ -Differential Weakness: Hypoglycemia, shock, sepsis, hyponatremia, anemia, infection, [place], ETOH, adverse medicine reaction, overdose, stroke, this is not meant to be an all-inclusive list. EKG interpreted by me (3pts min.). @ -See above X-rays interpreted by me (1pt min.). @ -Chest x-ray shows bibasilar acute infiltrate, hip x-ray shows no acute fracture, femur shows no acute fracture, tibia and fibula shows no acute fracture CT interpreted by me (1pt min.). @ -None done U/S interpreted by me (1pt. min.). @ -None done What testing was considered but not performed or refused? (CT, X-rays, U/S, labs)? Why? @ -None What meds were considered but not given or refused? Why? @ -None Did you discuss the management of the patient with other professionals (professionals i.e. , PA, SURGEON/PRESIDENT, lab, RT, psych nurse, social media editor, emergency medical dispatcher, teacher, medical officer, piano case and bench assembler)? Give summary @ -Case discussed with hospitalist and admission. Case also discussed with desilverizer for ICU admission Was smoking cessation discussed for >3mins.? @ -No Was critical care preformed (if so, how long)? @ -yes 77 minutes Were there social determinants of health that impacted care today? How? (Homelessness, low income, unemployed, alcoholism, drug addiction, transportation, low edu. Level, literacy, decrease access to med. care, senior care, rehab)? @ -No Was there de-escalation of care discussed even if they declined (Discuss DNR or withdrawal of care, Hospice)? DNR status @ -No What co-morbidities impacted this encounter? (DM, HTN, Smoking, COPD, CAD, Cancer, CVA, ARF, Chemo, Hep., AIDS, mental health diagnosis, sleep apnea, mo rbid obesity)? @ -None Was patient admitted / discharged? Hospital course, mention meds given and route, prescriptions, significant lab abnormalities, going to OR and other pertinent info. @ -68-year-old male presents emergency department for fever, hypertension and leg pain. Vital signs upon arrival shows blood pressure of 82/47. Patient was stable appearing until several hours later he became only responsive with respiratory failure. Decision was made to intubate the patient. Intubation was performed in delayed sequence. He is started on pressors given IV fluids. Right central venous catheter line was placed. Laboratory evaluation obtained showing leukopenia of 0.6, thrombocytopenia of 33, coag panel is negative. Metabolic panel shows like has dosed 2.3 troponin 0.041. Viral testing negative. X-ray suggest pneumonia. Patient started on antibiotics. Patient will be admitted to intensive care unit Undiagnosed new problem with uncertain prognosis? @ -No Drug Therapy requiring intensive monitoring for toxicity (Heparin, Nitro, Insulin, Cardizem)? @ -No Were any procedures done? @ -No Diagnosis/symptom? Acute, or Chronic, or Acute on Chronic? Uncomplicated (without systemic symptoms) or Complicated (systemic symptoms)? @ -Respiratory failure, septic shock secondary to pneumonia Side effects of treatment? @ -No Exacerbation, Progression, or Severe Exacerbation? @ -No Poses a threat to life or bodily function? How? (Chest pain, [place], [place], pneumonia, PE, COPD, DKA, ARF, appy, cholecystitis, CVA, Diverticulitis, Homicidal, Suicidal, threat to staff... and all critical care pts) @ -yes - Lab Data Result diagrams: 08/31/23 05:55 08/31/23 05:55 Lab Results 08/30/23 08/30/23 08/30/23 Range/Units 22:05 22:05 22:05 WBC (3.8-10.6) k/uL RBC (4.30-5.90) m/uL Hgb (13.0-17.5) gm/dL Hct (39.0-53.0) % MCV (80.0-100.0) fL MCH (25.0-35.0) pg MCHC (31.0-37.0) g/dL RDW (11.5-15.5) % Plt Count (150-450) k/uL MPV Differential Comment Manual Slide Review PT 14.3 H (10.0-12.5) sec INR 1.4 H (<1.2) APTT 22.3 (22.0-30.0) sec Sodium 133 L (137-145) mmol/L Potassium 4.6 (3.5-5.1) mmol/L Chloride 108 H (98-107) mmol/L Carbon Dioxide 22 (22-30) mmol/L Anion Gap 3 mmol/L BUN 38 H (9-20) mg/dL Creatinine 0.75 (0.66-1.25) mg/dL Est GFR (CKD-EPI)AfAm >90 (>60 ml/min/1.73 sqM) Est GFR (CKD-EPI)NonAf >90 (>60 ml/min/1.73 sqM) Glucose 68 L (74-99) mg/dL Lactic Ac Sepsis Rflx Plasma Lactic Acid Zachery 2.3 H* (0.7-2.0) mmol/L Calcium 7.6 L (8.4-10.2) mg/dL Magnesium 2.2 (1.6-2.3) mg/dL Total Bilirubin 0.8 (0.2-1.3) mg/dL AST 40 (17-59) U/L ALT 44 (4-49) U/L Alkaline Phosphatase 58 (38-126) U/L Troponin I (0.000-0.034) ng/mL NT-Pro-B Natriuret Pep 2030 pg/mL Total Protein 4.0 L (6.3-8.2) g/dL Albumin 1.9 L (3.5-5.0) g/dL TSH 0.040 L (0.465-4.680) mIU/L Influenza Type A (PCR) (Not Detectd) Influenza Type B (PCR) (Not Detectd) RSV (PCR) (Not Detectd) SARS-CoV-2 (PCR) (Not Detectd) 08/30/23 08/30/23 08/30/23 Range/Units 22:05 22:38 22:42 WBC 0.6 L* (3.8-10.6) k/uL RBC 2.55 L (4.30-5.90) m/uL Hgb 8.4 L (13.0-17.5) gm/dL Hct 24.6 L (39.0-53.0) % MCV 96.7 (80.0-100.0) fL MCH 32.9 (25.0-35.0) pg MCHC 34.0 (31.0-37.0) g/dL RDW 15.8 H (11.5-15.5) % Plt Count 33 L (150-450) k/uL MPV 7.4 Differential Comment Manual Slide Review Performed PT (10.0-12.5) sec INR (<1.2) APTT (22.0-30.0) sec Sodium (137-145) mmol/L Potassium (3.5-5.1) mmol/L Chloride (98-107) mmol/L Carbon Dioxide (22-30) mmol/L Anion Gap mmol/L BUN (9-20) mg/dL Creatinine (0.66-1.25) mg/dL Est GFR (CKD-EPI)AfAm (>60 ml/min/1.73 sqM) Est GFR (CKD-EPI)NonAf (>60 ml/min/1.73 sqM) Glucose (74-99) mg/dL Lactic Ac Sepsis Rflx Y Plasma Lactic Acid Zachery (0.7-2.0) mmol/L Calcium (8.4-10.2) mg/dL Magnesium (1.6-2.3) mg/dL Total Bilirubin (0.2-1.3) mg/dL AST (17-59) U/L ALT (4-49) U/L Alkaline Phosphatase (38-126) U/L Troponin I (0.000-0.034) ng/mL NT-Pro-B Natriuret Pep pg/mL Total Protein (6.3-8.2) g/dL Albumin (3.5-5.0) g/dL TSH (0.465-4.680) mIU/L Influenza Type A (PCR) Not Detected (Not Detectd) Influenza Type B (PCR) Not Detected (Not Detectd) RSV (PCR) Not Detected (Not Detectd) SARS-CoV-2 (PCR) Not Detected (Not Detectd) 08/30/23 Range/Units 22:57 WBC (3.8-10.6) k/uL RBC (4.30-5.90) m/uL Hgb (13.0-17.5) gm/dL Hct (39.0-53.0) % MCV (80.0-100.0) fL MCH (25.0-35.0) pg MCHC (31.0-37.0) g/dL RDW (11.5-15.5) % Plt Count (150-450) k/uL MPV Differential Comment Manual Slide Review PT (10.0-12.5) sec INR (<1.2) APTT (22.0-30.0) sec Sodium (137-145) mmol/L Potassium (3.5-5.1) mmol/L Chloride (98-107) mmol/L Carbon Dioxide (22-30) mmol/L Anion Gap mmol/L BUN (9-20) mg/dL Creatinine (0.66-1.25) mg/dL Est GFR (CKD-EPI)AfAm (>60 ml/min/1.73 sqM) Est GFR (CKD-EPI)NonAf (>60 ml/min/1.73 sqM) Glucose (74-99) mg/dL Lactic Ac Sepsis Rflx Plasma Lactic Acid Zachery (0.7-2.0) mmol/L Calcium (8.4-10.2) mg/dL Magnesium (1.6-2.3) mg/dL Total Bilirubin (0.2-1.3) mg/dL AST (17-59) U/L ALT (4-49) U/L Alkaline Phosphatase (38-126) U/L Troponin I 0.041 H* (0.000-0.034) ng/mL NT-Pro-B Natriuret Pep pg/mL Total Protein (6.3-8.2) g/dL Albumin (3.5-5.0) g/dL TSH (0.465-4.680) mIU/L Influenza Type A (PCR) (Not Detectd) Influenza Type B (PCR) (Not Detectd) RSV (PCR) (Not Detectd) SARS-CoV-2 (PCR) (Not Detectd) Disposition Clinical Impression: Shock circulatory Disposition: ADMITTED IP TO THIS HOSP Condition: Critical
[2023-08-30 22:33] LABS: ALT 44 U/L (4-49); AST 40 U/L (17-59); African American GFR (CKD) >90 (>60 ml/min/1.73 sqM); Albumin 1.9 g/dL (3.5-5.0); Alkaline Phosphatase 58 U/L (38-126); Anion Gap 3 mmol/L; Blood Urea Nitrogen 38 mg/dL (9-20); Calcium 7.6 mg/dL (8.4-10.2); Carbon Dioxide 22 mmol/L (22-30); Chloride 108 mmol/L (98-107); Glucose 68 mg/dL (74-99); Magnesium 2.2 mg/dL (1.6-2.3); Non-African American GFR(CKD) >90 (>60 ml/min/1.73 sqM); Potassium 4.6 mmol/L (3.5-5.1); Sodium 133 mmol/L (137-145); Total Bilirubin 0.8 mg/dL (0.2-1.3)
[2023-08-30] MEDS ORDERED: ACETAMINOPHEN TAB 500 MG TAB PO STA (22:38)
[2023-08-30 22:43] LABS: NT-Pro-B-Type Natriuretic Pept 2030 pg/mL
--- NOTE | 2023-08-30 22:43 | XR ---
EXAMINATION TYPE: XR chest 1V portable DATE OF EXAM: 08/30/2023 COMPARISON: Chest x-ray November 14, 2018 HISTORY: Weakness TECHNIQUE: Single frontal view of the chest is obtained. FINDINGS: There are new bibasilar opacities. Upper lungs are clear. The cardiac silhouette size piper ins within normal limits. The osseous structures are intact. IMPRESSION: New Bibasilar acute infiltrate and/or atelectasis and likely small left pleural effusion .
[2023-08-30 22:46] LABS: HCT 24.6 % (39.0-53.0); HGB 8.4 gm/dL (13.0-17.5); MCH 32.9 pg (25.0-35.0); MCV 96.7 fL (80.0-100.0); Mean Platelet Volume 7.4; RBC 2.55 m/uL (4.30-5.90); RDW 15.8 % (11.5-15.5)
[2023-08-30 22:47] LABS: INR 1.4 (<1.2); Partial Thromboplastin Time 22.3 sec (22.0-30.0); Prothrombin Time 14.3 sec (10.0-12.5)
[2023-08-30 22:53] LABS: WBC 0.6 k/uL (3.8-10.6)
[2023-08-30 23:06] LABS: Platelet Count 33 k/uL (150-450)
[2023-08-31] MEDS: PIPERACILLIN-TAZOBACTAM 3.375 GM in SODIUM CHLORIDE 0.9% 100 ML IVPB SCH ×2 (00:30→09:35)
[2023-08-31] MEDS ORDERED: ETOMIDATE 2 MG/ML 10 ML VIAL IVP STA (01:00)
[2023-08-31] MEDS ORDERED: ROCURONIUM 10 MG/ML (5 ML VIAL) IV ONE (01:00)
[2023-08-31] MEDS ORDERED: PROPOFOL 10 MG/ML 20 ML VIAL IV ONE (01:38)
[2023-08-31] MEDS ORDERED: SODIUM CHLORIDE 0.9% 1,000 ML IV STA (01:42)
[2023-08-31] MEDS ORDERED: HYDROmorphone 1 MG/ML 1 ML SYRINGE IVP STA (01:50)
[2023-08-31] MEDS ORDERED: HYDROCORTISONE SUCCINATE 100 MG/2 ML VIAL IV STA ×2 (01:50→07:05)
--- NOTE | 2023-08-31 01:51 | XR ---
EXAM: XR Right Hip With Pelvis When Performed, 1 View CLINICAL HISTORY: [email or web address] XR Reason: leg pain TECHNIQUE: Frontal view of the right hip with pelvis when performed. COMPARISON: No relevant prior studies available. FINDINGS: Bones/joints: Right total hip arthroplasty. No acute fracture. IMPRESSION: Right total hip arthroplasty. No acute fracture.
--- NOTE | 2023-08-31 01:54 | XR ---
EXAM: XR Right Femur, 1 View CLINICAL HISTORY: [email or web address] XR Reason: leg pain TECHNIQUE: Frontal view of the right femur. COMPARISON: No relevant prior studies available. FINDINGS: Bones/joints: No acute fracture. Degenerative changes at the knee. Right hip arthroplasty. No hardware complication. Soft tissues: Unremarkable. IMPRESSION: No acute fracture.
[2023-08-31] MEDS ORDERED: NOREPINEPHRINE 4 MG in SODIUM CHLORIDE 0.9% 250 ML IV ONE (02:00)
--- NOTE | 2023-08-31 02:02 | XR ---
EXAM: XR Right Tibia and Fibula, 2 Views CLINICAL HISTORY: [email or web address] XR Reason: leg pain TECHNIQUE: Frontal and lateral views of the right tibia and fibula. COMPARISON: No relevant prior studies available. FINDINGS: Bones/joints: No acute fracture. Degenerative changes at the knee. Soft tissues: Soft tissue edema. No radiopaque foreign body. IMPRESSION: 1. No acute fracture. 2. Soft tissue edema.
[2023-08-31] MEDS ORDERED: MIDAZOLAM 1 MG/ML 5 ML VIAL IV STA (02:18)
[2023-08-31] MEDS ORDERED: NALOXONE 0.4 MG/ML 1 ML VIAL IV PRN (02:26)
[2023-08-31] MEDS ORDERED: SODIUM CHLORIDE 0.9% 1,000 ML IV SCH (02:30)
[2023-08-31] MEDS: NOREPINEPHRINE 32 MG in SODIUM CHLORIDE 0.9% 218 ML IV ONE ×2 (02:30→10:21)
[2023-08-31] MEDS ORDERED: VANCOMYCIN IV PER PHARMACY 1 EACH MISC MISCELLANE PRN (02:30)
--- NOTE | 2023-08-31 02:39 | XR ---
EXAM: XR Chest, 1 View CLINICAL HISTORY: [email or web address] XR Reason: intubation TECHNIQUE: Frontal view of the chest. COMPARISON: Chest x-ray 08/30/2023 at 9:58 PM FINDINGS: Lungs: Unchanged basilar airspace opacities. Pleural space: No pleural effusion. No pneumothorax. Heart: Unremarkable. No cardiomegaly. Tubes, lines and devices: Endotracheal tube terminates 4 cm above the tarik. IMPRESSION: 1. Endotracheal tube terminates 4 cm above the tarik. 2. Unchanged basilar airspace opacities.
[2023-08-31 03:13] LABS: ABG Base Excess -5.3 mmol/L; ABG HCO3 22 mmol/L (21-25); ABG Oxygen Saturation 99.7 % (94-97); ABG PCO2 53 mmHg (35-45); ABG PH 7.23 (7.35-7.45); ABG PO2 211 mmHg (83-108); ABG TCO2 24 mmol/L (19-24)
[2023-08-31 03:22] LABS: Allen Test Performed? no
[2023-08-31] MEDS ORDERED: VANCOMYCIN 2,500 MG in SODIUM CHLORIDE 0.9% 500 ML 500 ML IVPB ONE (03:30)
[2023-08-31] MEDS ORDERED: VASOPRESSIN 60 UNIT in SODIUM CHLORIDE 0.9% 150 ML IV SCH (04:15)
[2023-08-31 04:16] LABS: Glucose,Whole Blood 44 mg/dL (70-110)
[2023-08-31] MEDS ORDERED: DEXTROSE 50% SYRINGE 50 ML IVP STA (04:16)
[2023-08-31] MEDS ORDERED: Potassium Replacement Protocol 1 EACH MISC MISCELLANE PRN (04:43)
[2023-08-31] MEDS ORDERED: Magnesium Replacement Protocol 1 EACH MISC MISCELLANE PRN (04:43)
[2023-08-31 04:45] LABS: Glucose,Whole Blood 196 mg/dL (70-110)
[2023-08-31 04:47] LABS: ABG Base Excess -5.7 mmol/L; ABG HCO3 22 mmol/L (21-25); ABG Oxygen Saturation 96.8 % (94-97); ABG PCO2 50 mmHg (35-45); ABG PH 7.25 (7.35-7.45); ABG PO2 90 mmHg (83-108); ABG TCO2 23 mmol/L (19-24); Allen Test Performed? Yes
[2023-08-31 05:07] LABS: HCT 24.1 % (39.0-53.0); HGB 8.2 gm/dL (13.0-17.5); MCH 33.7 pg (25.0-35.0); MCHC 34.1 g/dL (31.0-37.0); MCV 98.8 fL (80.0-100.0); Macrocytosis Slight; Mean Platelet Volume 8.8; RBC 2.43 m/uL (4.30-5.90); RDW 15.8 % (11.5-15.5)
[2023-08-31 05:09] LABS: WBC 1.1 k/uL (3.8-10.6)
[2023-08-31 05:10] LABS: Platelet Count 34 k/uL (150-450)
[2023-08-31 05:23] LABS: Glucose,Whole Blood 146 mg/dL (70-110)
[2023-08-31 05:23] LABS: Glucose,Whole Blood 151 mg/dL (70-110)
[2023-08-31 05:24] LABS: Neutrophils % (M) 12 %
[2023-08-31 05:25] LABS: Band Neutrophils % 80 %; Metamyelocytes # (M) 0.09 k/uL (0); Metamyelocytes % 8 %; Nucleated Red Blood Cells 0 /100 WBC (0-0); Total Cells Counted 100; Toxic Granulation Present; Toxic Vacuolation Present
[2023-08-31] MEDS ORDERED: SODIUM BICARB 8.4% 50 ML SYR (1 MEQ/ML) ONE (05:25)
[2023-08-31 05:53] LABS: ABG Base Excess -1.4 mmol/L; ABG HCO3 26 mmol/L (21-25); ABG PCO2 59 mmHg (35-45); ABG PH 7.25 (7.35-7.45); ABG PO2 64 mmHg (83-108); ABG TCO2 28 mmol/L (19-24); Allen Test Performed? Yes
[2023-08-31] MEDS: EPINEPHrine 4 MG in DEXTROSE 5% IN WATER 250 ML IV SCH ×6 (05:57→09:36)
[2023-08-31] MEDS ORDERED: DEXTROSE 5% IN WATER 1,000 ML with SODIUM BICARB (1 MEQ/ML) 150 ML IV SCH (06:00)
[2023-08-31 06:06] LABS: HCT 23.4 % (39.0-53.0); HGB 7.8 gm/dL (13.0-17.5); MCH 32.8 pg (25.0-35.0); MCHC 33.3 g/dL (31.0-37.0); MCV 98.4 fL (80.0-100.0); Macrocytosis Slight; RBC 2.38 m/uL (4.30-5.90); RDW 15.8 % (11.5-15.5)
[2023-08-31 06:16] LABS: Platelet Count 29 k/uL (150-450); WBC 0.7 k/uL (3.8-10.6)
[2023-08-31 06:20] LABS: Glucose,Whole Blood 143 mg/dL (70-110)
--- NOTE | 2023-08-31 06:32 | P.EN ---
Code Blue Note Activated at 0520 for PEA. Arrived at the scene shortly after. The patient had CPR and was given epinephrine IV push 3 and sodium bicarbonate IV push 5. The patient subsequently had ROSC at 0530. He also developed A. fib for which an amiodarone 300 mg bolus was given. The patient was continued on Levophed and vasopressin infusions with epinephrine and sodium bicarbonate infusions initiated. The chart was reviewed and the case was discussed with the ED provider and also with the family at the bedside. The patient was suspected to have septic shock and was given broad-spectrum IV antibiotics in the emergency room and IV fluid resuscitation. He continues to be on normal saline 130 mL per hour in addition to sodium bicarbonate 100 mL/h. ABG following ROSC obtained and reviewed, patient's FiO2 increased to 100%. Repeat blood work including CBC and BMP ordered. Please refer to code sheet for further details. Total time spent providing critical care for this patient: 45 minutes
[2023-08-31 06:39] LABS: Glucose,Whole Blood 171 mg/dL (70-110)
[2023-08-31 06:53] LABS: African American GFR (CKD) 84 (>60 ml/min/1.73 sqM); Anion Gap 1 mmol/L; Blood Urea Nitrogen 39 mg/dL (9-20); Calcium 6.9 mg/dL (8.4-10.2); Carbon Dioxide 20 mmol/L (22-30); Chloride 111 mmol/L (98-107); Glucose 168 mg/dL (74-99); Magnesium 2.1 mg/dL (1.6-2.3); Non-African American GFR(CKD) 73 (>60 ml/min/1.73 sqM); Potassium 4.5 mmol/L (3.5-5.1); Sodium 132 mmol/L (137-145)
[2023-08-31 06:54] LABS: African American GFR (CKD) 83 (>60 ml/min/1.73 sqM); Anion Gap 2 mmol/L; Blood Urea Nitrogen 40 mg/dL (9-20); Calcium 6.6 mg/dL (8.4-10.2); Carbon Dioxide 26 mmol/L (22-30); Chloride 110 mmol/L (98-107); Glucose 139 mg/dL (74-99); Non-African American GFR(CKD) 72 (>60 ml/min/1.73 sqM); Potassium 4.5 mmol/L (3.5-5.1); Sodium 138 mmol/L (137-145)
[2023-08-31] MEDS ORDERED: EPINEPHrine 10 ML SYRINGE (0.1 MG/ML) ONE (07:00)
--- NOTE | 2023-08-31 07:09 | XR ---
EXAM: XR Chest, 1 View CLINICAL HISTORY: [email or web address] XR Reason: OG tube placement TECHNIQUE: Frontal view of the chest. COMPARISON: 08/31/23 at 0127 hrs. FINDINGS: Lungs: Retrocardiac opacity which may reflect atelectasis, infiltrate or effusion. Diffuse increased interstitial lung markings which may reflect mild congestion, unchanged. Low lung volume limit evaluation. Pleural space: Right costophrenic angle, partly excluded from the imaging field of view. No pneumothorax. Heart: Cardiovascular silhouette, stable and upper limits of normal, likely accentuated by low lung volume. Mediastinum: Prominent mediastinum, unchanged likely tortuous thoracic aorta. Bones/joints: Unremarkable. No acute fracture. Tubes, lines and devices: Interval placement of NG tube, coursing beyond the GE junction, tip not seen on this film, although presumably in the stomach. Endotracheal tube, tip approximately 2 cm from the tarik. Overlying chest leads obscure portion of the chest. IMPRESSION: 1. Interval placement of NG tube, coursing beyond the GE junction, tip not included on this film. 2. Tip of the NG tube is presumably in the stomach. 3. Endotracheal tube, tip approximately 2 cm from the tarik. Consider pulling back by approximately 1 cm. 4. No other change
--- NOTE | 2023-08-31 07:12 | XR ---
EXAM: XR Chest, 1 View CLINICAL HISTORY: [email or web address] XR Reason: Tube placement TECHNIQUE: Frontal view of the chest. COMPARISON: 08/31/23 at 0313 hrs. FINDINGS: Lungs: Bibasilar atelectasis/airspace disease. Prominent interstitial lung markings again noted. Pleural space: Small bilateral pleural effusion, likely unchanged. No pneumothorax. Heart: Stable cardiovascular silhouette, upper limits of normal accentuated by low lung volume. Mediastinum: Prominent mediastinum, unchanged likely tortuous thoracic aorta. Bones/joints: Unremarkable. No acute fracture. Tubes, lines and devices: Endotracheal tube, tip approximately 2-3 centimeters from the tarik. NG tube, coursing beyond the GE junction, tip projecting over the left upper abdomen likely in the stomach. Overlying chest leads obscure portion of the chest. IMPRESSION: 1. NG tube, tip in the stomach. 2. Endotracheal tube, satisfactory in position. 3. Bibasilar atelectasis/airspace disease and/or effusion, left worse than right and unchanged
[2023-08-31] MEDS ORDERED: SODIUM CHLORIDE 0.9% 1,000 ML IV ONE ×2 (08:00→09:00)
--- NOTE | 2023-08-31 08:19 | P.CNPUL ---
History of Present Illness Consult date: 08/31/23 Chief complaint: Cardiac arrest History of present illness: This is a 68-year-old male patient was currently in hemodynamic collapse, intubated on a mechanical ventilator in the intensive care unit. Unfortunately, not a whole lot of information is available on this patient. The family is in complete shock about his condition and they're not aware of the details of his earlier condition and hospital admissions.. Emergency department records are not much helpful. In summary, the patient comes in from the care home where he has been been sent for rehabilitation. He has been having spine problems with ongoing weakness in his lower extremity to the affected his mobility and he was sent for rehabilitation and he has been residing at [facility]. In the emergency, the patient initially presented with pain in his lower extremity and subsequently he was found to be in significant respiratory distress and hypoxemic respiratory failure. Immediately, he was intubated and placed on a mechanical ventilator. He was found to be in shock. IV lines were established including a triple-lumen catheter. He was started on pressors. After arrival to the intensive care unit, the patient also had a cardiac arrest with he went into a PEA rhythm at 5:20 AM this morning. CPR was initiated and the patient was given epinephrine 3 along with bicarb pushes 5. He was down for a total of 10 minutes and there was return of spontaneous circulation at 5:30 AM this morning. He developed atrial fibrillation. He was given amiodarone 300 mg. At this point in time, the patient is on epinephrine drip at 0.5 mcg/kg/m and vasopressin physiologic dose. He has a severe total of 2 L of IV fluids. He is also on norepinephrine running at 1 mcg/kg/m. His blood counts are significantly abnormal. His white cycles of 0.7 with a hemoglobin of 7.8 and a platelet count of 29. As such, the patient is pancytopenic. The family is not aware of his previous hospital admissions a medical problems. I was able to restart some information from this patient from [facility] medical records. He was in the hospital there back in August 2023. He was discharged on 08/24/2023. He is known to have history of bullous pemphigoid and he was treated with steroids. He was given IV Solu-Medrol during his last hospitalization and he was discharged home on methotrexate. The exact dosing and the regimen is not known. He has also issues with atrial fibrillation fibrillation. He was given anticoagulation with xarelto. During his hospital stay, he was seen by cardiology. Echo was done and the patient had a normal LV function. He did have an elevation in troponin which was considered to be a demand supply mismatch MRI. He was found to be hyperglycemic and he was started on insulin. This was attributed to steroid use. He continued to have signif icant weakness in lower extremities radiculopathy. He has had back surgery many years back. During his hospitalization, he also encountered GI bleeding. based on the neurology evaluation, the patient generalized weakness lower extremity more than upper extremity. He had right sciatica and he also had a right foot drop related to a previous L5-S1 fusion. He was suspected to have also peripheral neuropathy. It is encountered also some proximal muscle weakness on examination along with a foot drop. MRI of the spine was done and the patient was found to have epidural lipomatosis noted at the level of L5-S1. Postoperative changes were seen at the level of L4-L5 and the patient has obviou s spinal fusion with metallic hardware at the level of L4-L5. 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 Also known to have erosive gastritis. At this point in time, the patient is intubated on a mechanical ventilator. His assist-control mode at the rate of 20, tidal volume of 500, FiO2 of 100% and a PEEP of 5. The blood gases from this morning shows a pH of 7.25 with a pCO2 59 and pO2 of 64. Creatinine is at 1 with a BUN of 40. He has received a total of 3 L of normal saline. Urine output is minimal. Positive the lower extremities are quite diminished. No bullous disease actively seen. There was one area of bullous formation in his right inner thigh area. Otherwise the rest of the skin is intact. Review of Systems ROS unobtainable: due to endotracheal tube Past Medical History Past Medical History: Atrial Fibrillation, Cancer, Diabetes Mellitus, Hyperlipidemia, Hypertension, Osteoarthritis (OA), Skin Disorder Additional Past Medical History / Comment(s): has numbness virgilio legs-rt leg worse,hx basal cell CA removed from face,prostate CA-no radiation or chemo,fx back-in brace for 3 mos History of Any Multi-Drug Resistant Organisms: None Reported Past Surgical History: Joint Replacement, Orthopedic Surgery, Prostate Surgery, Tonsillectomy Additional Past Surgical History / Comment(s): rt hip replacement,prostatectomy,retinal reattachment,rt knee cartilage removed Past Anesthesia/Blood Transfusion Reactions: No Reported Reaction Additional Past Anesthesia/Blood Transfusion Reaction / Comment(s): no hx blood transfusion Past Psychological History: No Psychological Hx Reported Smoking Status: Never smoker Past Alcohol Use History: None Reported Past Drug Use History: None Reported - Past Family History Mother Family Medical History: No Reported History Daughter(s) Family Medical History: No Reported History Medications and Allergies Home Medications Medication Instructions Recorded Confirmed Type Fluticasone Nasal Union [Flonase 1 spr EA NOSTRIL DAILY@0800 11/14/18 08/30/23 History Nasal Union] Losartan Potassium [Cozaar] 100 mg PO DAILY@0800 11/14/18 08/30/23 History hydrALAZINE HCL [Apresoline] 50 mg PO BID@0800,1700 11/14/18 08/30/23 History Acetaminophen Tab [Tylenol] 650 mg PO Q4H PRN 08/30/23 08/30/23 History Clobetasol E 0.05% Cream 1 applic TOPICAL BID@0800,1700 08/30/23 08/30/23 History Fluconazole [Diflucan] 100 mg PO DAILY@0800 08/30/23 08/30/23 History Furosemide [Lasix] 40 mg PO DAILY@0800 08/30/23 08/30/23 History Insulin Aspart [NovoLOG] 10 units SQ AC-TID 08/30/23 08/30/23 History Insulin Aspart [NovoLOG] See Protocol SQ ACHS 08/30/23 08/30/23 History Insulin Detemir (Levemir) [Levemir] 30 unit SQ HS 08/30/23 08/30/23 History Magnesium Hydroxide [Milk of 7,200 mg PO DIRECTED PRN 08/30/23 08/30/23 History Magnesia Concentrate] Melatonin 5 mg PO HS 08/30/23 08/30/23 History Na Phos,M-B/Na Phos,Di-Ba [Fleet 133 ml RECTAL DIRECTED PRN 08/30/23 08/30/23 History Adult] Rivaroxaban [Xarelto] 20 mg PO DAILY@0800 08/30/23 08/30/23 History bisacodyL [Dulcolax] 10 mg RECTAL Q24H PRN 08/30/23 08/30/23 History dilTIAZem HCL [Cardizem LA] 180 mg PO DAILY@0800 08/30/23 08/30/23 History methylPREDNISolone [Medrol] 16 mg PO DAILY@0800 08/30/23 08/30/23 History polyethylene glycoL 3350 [Miralax] 17 gm PO BID@0800,1700 08/30/23 08/30/23 History Allergies Allergy/AdvReac Type Severity Reaction Status Date / Time No Known Allergies Allergy Verified 08/30/23 22:16 Physical Exam Vitals: Vital Signs Temp Pulse Resp BP Pulse Ox FiO2 08/31/23 07:30 93 21 84/51 87 L 08/31/23 07:00 224 H 142 H 59/24 89 L 08/31/23 06:30 97 18 82/61 94 L 08/31/23 06:00 144 H 17 106/69 94 L 08/31/23 05:54 100 08/31/23 05:37 95 85/34 99 08/31/23 05:36 101 H 92/30 99 08/31/23 05:35 97 110/38 100 08/31/23 05:30 103 H 25 H 84/44 95 08/31/23 05:00 99 23 89/27 96 08/31/23 04:40 80 08/31/23 04:36 23 08/31/23 04:00 88 85/34 99 08/31/23 03:45 85 30/10 92 L 08/31/23 03:20 80 08/31/23 03:18 96 110/38 100 08/31/23 02:45 95 117/62 96 08/31/23 02:30 91 70/42 100 08/31/23 02:15 85 60/34 100 08/31/23 02:00 87 80/34 100 08/31/23 01:45 80 75/39 100 08/31/23 01:30 86 84/50 96 100 08/31/23 01:29 100 08/31/23 00:45 65/40 08/31/23 00:30 56/38 08/31/23 00:00 72/46 95 08/30/23 23:30 20 82/46 94 L 08/30/23 23:00 84 20 88/46 96 08/30/23 22:29 86 22 74/41 94 L 08/30/23 22:00 80/50 88 L 08/30/23 21:30 83 20 83/21 90 L 08/30/23 21:24 99.1 F 90 20 82/47 90 L Intake and Output 08/30/23 08/31/23 08/31/23 22:59 06:59 14:59 Intake Total 130.698 Balance 130.698 Intake: Intake, IV Titration 130.698 Amount EPINEPHrine 4 mg In 7.593 Dextrose 5% in Water 250 ml @ 0.03 MCG/KG/MIN 14. 696 mls/hr IV [facility] Rx#:[id number] Norepinephrine 32 mg In 53.704 Sodium Chloride 0.9% 218 ml @ 0.03 MCG/KG/MIN 1. 837 mls/hr IV .Q24H [facility] Rx#:[id number] Norepinephrine 4 mg In 41.891 Sodium Chloride 0.9% 250 ml @ 0.03 MCG/KG/MIN 14. 932 mls/hr IV .Q17H1M [facility] Rx#:[id number] Vasopressin 60 unit In 0.077 Sodium Chloride 0.9% 150 ml @ 0.03 UNITS/MIN 4.59 mls/hr IV [facility] Rx#: [id number] propofoL 1,000 mg In 27.433 Empty Bag 1 bag @ 15 MCG/ KG/MIN 11.757 mls/hr IV . Q8H31[facility] Rx#:[id number] Other: Weight 130.635 kg ABP, PAP, CO, CI - Last 8 Hours Arterial Blood Pressure 96/50 Arterial Blood Pressure 90/41 Arterial Blood Pressure 109/49 Arterial Blood Pressure 94/31 Arterial Blood Pressure 98/39 The penis, calm and comfortable on propofol which is running at 15 mcg/kg/m. Head exam was generally normal. There was no scleral icterus or corneal arcus. Mucous membranes were moist. Neck was supple and without jugular venous distension, thyromegaly, or carotid bruits. Carotids were easily palpable bilaterally. There was no adenopathy. Orogastric and orotracheal tube are both in place. Lung examination shows diminished breath sounds bilaterally. No significant rhonchi or wheezes. Cardiac exam revealed the PMI to be normally situated and sized. The rhythm was regular and no extrasystoles were noted during several minutes of auscultation. The first and second heart sounds were normal and physiologic splitting of the second heart sound was noted. There were no murmurs, rubs, clicks, or gallops. Abdominal exam revealed normal bowel sounds. The abdomen was soft, non-tender, and without masses, organomegaly, or appreciable enlargement of the abdominal aorta. Extremities are showing +1 edema, there is obvious muscle atrophy. Pulses are diminished in lower extremity is bilaterally. There is a large bullous skin lesion in the right posterior calf area. This is at least 15 x 4 cm in size and its a fluid-filled bullous. No signs of any infection. Smaller bullous lesions are seen in his right groin area. The patient has extensive edema in his upper extremities and multiple areas of skin ecchymosis in his left upper extremity and some in his right upper extremity. Ecchymotic areas are also seen in his right groin. Unresponsive, on propofol. Motor and sensory function cannot be accurately assessed. Pupils are round 3 mm in size, sluggishly reactive to light. Reflexes are diminished. No Babinski. No clonus. Is breathing above the mechanical ventilator., Skin shows a large bullous lesion in his posterior aspect of the right lower extremity covering the gastrocnemius muscle. He also has some bullous changes in his right groin. Ecchymotic changes and multiple skin abrasions and weeping skin in his upper extremities. Results - Laboratory Findings CBC and BMP: 08/31/23 05:55 08/31/23 05:55 ABG ABG pH 7.25 (7.35-7.45) L 08/31/23 05:49 ABG pCO2 59 mmHg (35-45) H 08/31/23 05:49 ABG pO2 64 mmHg (83-108) L 08/31/23 05:49 ABG O2 Saturation 90.0 % (94-97) L 08/31/23 05:49 PT/INR, D-dimer PT 14.3 sec (10.0-12.5) H 08/30/23 22:05 INR 1.4 (<1.2) H 08/30/23 22:05 Abnormal lab findings: Abnormal Labs 08/30/23 08/30/23 08/30/23 22:05 22:05 22:05 WBC RBC Hgb Hct RDW Plt Count Neutrophils # (Manual) Metamyelocytes # (Man) PT 14.3 H INR 1.4 H ABG pH ABG pCO2 ABG pO2 ABG HCO3 ABG Total CO2 ABG O2 Saturation Sodium 133 L Chloride 108 H Carbon Dioxide BUN 38 H Glucose 68 L POC Glucose (mg/dL) Plasma Lactic Acid Zachery 2.3 H* Calcium 7.6 L Troponin I Total Protein 4.0 L Albumin 1.9 L TSH 0.040 L 08/30/23 08/30/23 08/31/23 22:42 22:57 03:15 WBC 0.6 L* RBC 2.55 L Hgb 8.4 L Hct 24.6 L RDW 15.8 H Plt Count 33 L Neutrophils # (Manual) Metamyelocytes # (Man) PT INR ABG pH 7.23 L ABG pCO2 53 H ABG pO2 211 H ABG HCO3 ABG Total CO2 ABG O2 Saturation 99.7 H Sodium Chloride Carbon Dioxide BUN Glucose POC Glucose (mg/dL) Plasma Lactic Acid Zachery Calcium Troponin I 0.041 H* Total Protein Albumin TSH 08/31/23 08/31/23 08/31/23 04:15 04:43 04:44 WBC RBC Hgb Hct RDW Plt Count Neutrophils # (Manual) Metamyelocytes # (Man) PT INR ABG pH 7.25 L ABG pCO2 50 H ABG pO2 ABG HCO3 ABG Total CO2 ABG O2 Saturation Sodium Chloride Carbon Dioxide BUN Glucose POC Glucose (mg/dL) 44 L 196 H Plasma Lactic Acid Zachery Calcium Troponin I Total Protein Albumin TSH 08/31/23 08/31/23 08/31/23 04:45 04:45 05:13 WBC 1.1 L* RBC 2.43 L Hgb 8.2 L Hct 24.1 L RDW 15.8 H Plt Count 34 L Neutrophils # (Manual) 1.00 L Metamyelocytes # (Man) 0.09 H PT INR ABG pH ABG pCO2 ABG pO2 ABG HCO3 ABG Total CO2 ABG O2 Saturation Sodium 132 L Chloride 111 H Carbon Dioxide 20 L BUN 39 H Glucose 168 H POC Glucose (mg/dL) 146 H Plasma Lactic Acid Zachery Calcium 6.9 L Troponin I Total Protein Albumin TSH 08/31/23 08/31/23 08/31/23 05:22 05:49 05:55 WBC 0.7 L* RBC 2.38 L Hgb 7.8 L Hct 23.4 L RDW 15.8 H Plt Count 29 L Neutrophils # (Manual) Metamyelocytes # (Man) PT INR ABG pH 7.25 L ABG pCO2 59 H ABG pO2 64 L ABG HCO3 26 H ABG Total CO2 28 H ABG O2 Saturation 90.0 L Sodium Chloride Carbon Dioxide BUN Glucose POC Glucose (mg/dL) 151 H Plasma Lactic Acid Zachery Calcium Troponin I Total Protein Albumin [facility] 08/31/23 08/31/23 08/31/23 05:55 06:18 06:39 WBC RBC Hgb Hct RDW Plt Count Neutrophils # (Manual) Metamyelocytes # (Man) PT INR ABG pH ABG pCO2 ABG pO2 ABG HCO3 ABG Total CO2 ABG O2 Saturation Sodium Chloride 110 H Carbon Dioxide BUN 40 H Glucose 139 H POC Glucose (mg/dL) 143 H 171 H Plasma Lactic Acid Zachery Calcium 6.6 L Troponin I Total Protein Albumin TSH - Diagnostic Findings Chest x-ray: image reviewed Assessment and Plan Plan: Acute shock, most likely septic shock. The patient is neutropenic and pancytopenic. The patient has been receiving high-dose of steroids and methotrexate on outpatient basis. It's reasonable to assume that the patient has become septic and currently he is in septic shock and multisystem organ failure. Furthermore, the patient sustained a cardiac pulmonary arrest and he was found in being a PEA rhythm and he was down for a total of 10 minutes with return of spontaneous circulation after receiving CPR and resuscitation based on the ACLS protocol. Currently on high-dose pressors including norepinephrine, epinephrine and the patient is on vasopressin physiologic dose. Given a total of 3 L of IV fluids and covered with a combination of Zosyn and vancomycin. PEA cardiac arrest with return of spontaneous circulation within 10 minutes. Received CPR and resuscitation based on ACLS protocol Acute hypoxic respiratory failure, currently intubated on mechanical ventilator Pancytopenia, could be related to intake of methotrexate with bone marrow suppression. Sepsis could also contributed to this. Paroxysmal A. fib, current rhythm is sinus and the patient has been maintained on anticoagulation on outpatient basis, preserved LV function based on early records Bullous pemphigoid disease and the patient has ongoing bullous skin changes in his extremities with a large bullous less than in his right lower extremity and smaller ones scattered throughout his body. Profound lower extremity weakness and the patient was undergoing rehabilitation at the care home. The patient is undergone previous spine surgery and he does have degenerative lumbar disc disease along with spinal stenosis History of erosive gastritis Hypertension History of prostate cancer Plan We'll give the patient additional 2 L of IV fluid and maintain maintenance of fluid at the rate of 150 mL an hour of normal saline Continue Prevacid a combination of norepinephrine, epinephrine and vasopressin Obtain a stat echocardiogram Obtain a pro-calcitonin level Obtain blood cultures Obtain urinalysis Continue Zosyn and vancomycin Continue ventilator support Give the patient /G CSF regarding his leukopenia Give the patient stress dose hydrocortisone 100 mg IV every 8 hours Skin care. The lower extremity will be wrapped at this point in time. Hold anticoagulation for the time being Condition is obviously critical. Discussed the case with the family. Family was not aware of any of those comorbid conditions as the patient has been experiencing. They did not understand that he was quite sick. I took some time explaining to them the current situation and I told him he that he was also on a cardiac arrest around 10 minutes. We'll continue resuscitation efforts. We'll consult infectious disease. We'll continue to follow and make further recommendations based on his progress. Chest x-ray was reviewed Lines are in good location We'll continue to follow., The patient also with a insulin sliding scale coverage and use insulin drip if needed. Check a coagulation profile Neck cardiac enzymes Check pro BNP Monitor urine output We'll continue to follow, condition is extremely critical, high risk for mortality based on the above. Time with Patient: Greater than 30
[2023-08-31] MEDS ORDERED: CHLORHEXIDINE GLUCONATE 15 ML CUP MUCOUS MEM SCH (09:00)
[2023-08-31 09:18] LABS: ABG Base Excess -4.6 mmol/L; ABG HCO3 22 mmol/L (21-25); ABG Oxygen Saturation 87.2 % (94-97); ABG PCO2 46 mmHg (35-45); ABG PH 7.29 (7.35-7.45); ABG TCO2 23 mmol/L (19-24)
[2023-08-31 09:19] LABS: ABG PO2 54 mmHg (83-108)
[2023-08-31] MEDS ORDERED: ANIDULAFUNGIN 200 MG in SODIUM CHLORIDE 0.9% 200 ML IVPB ONE (09:30)
[2023-08-31] MEDS: HYDROCORTISONE SUCCINATE 100 MG/2 ML VIAL IV SCH ×2 (09:34→16:27)
[2023-08-31 09:46] LABS: INR 1.6 (<1.2); Partial Thromboplastin Time 37.5 sec (22.0-30.0); Prothrombin Time 16.5 sec (10.0-12.5)
[2023-08-31] MEDS: SODIUM CHLORIDE 0.9% 1,000 ML IV SCH ×2 (10:21→17:28)
[2023-08-31 10:32] LABS: Appearance,Urine Turbid (Clear); Bacteria,Urine Rare /hpf; Bilirubin,Urine Negative (Negative); Blood,Urine Negative (Negative); Color,Urine Yellow; Glucose,Urine (UA) Negative (Negative); Ketones,Urine Negative (Negative); Leukocyte Esterase,Urine Negative (Negative); Mucus,Urine Rare /hpf; Nitrite,Urine Negative (Negative); Protein,Urine Negative (Negative); RBC,Urine 3 /hpf (0-5); Specific Gravity,Urine 1.021 (1.001-1.035); Urobilinogen,Urine <2.0 mg/dL (<2.0); WBC,Urine 1 /hpf (0-5)
[2023-08-31] MEDS: EPINEPHrine 16 MG in DEXTROSE 5% IN WATER 250 ML IV SCH ×4 (10:34→14:38)
[2023-08-31 11:40] LABS: Glucose,Whole Blood 232 mg/dL (70-110)
--- NOTE | 2023-08-31 12:01 | CA ---
Transthoracic Echo Report Name: Hank Wayne Age: 68 Gender: M : 1955 Exam Date: 08/31/2023 11:45 Exam Location: [facility] Ht (in): 74 Wt (lb): 288 Ordering Physician: Cesia Salas MD Attending/Referring Phys: Test Driller Dayanara Woods RD Procedure CPT: Indications: shock Cardiac Hx: Technical Quality: Technically difficult study Contrast 1: Definity Total Dose (mL): 2 Contrast 2: Total Dose (mL): MEASUREMENTS (Male / Female) Normal Values 2D ECHO LV Diastolic Diameter PLAX 5.4 cm 4.2 - 5.9 / 3.9 - 5.3 cm LV Systolic Diameter PLAX 4.1 cm IVS Diastolic Thickness 1.1 cm 0.6 - 1.0 / 0.6 - 0.9 cm LVPW Diastolic Thickness 1.3 cm 0.6 - 1.0 / 0.6 - 0.9 cm LV Relative Wall Thickness 0.4 RV Internal Dim ED PLAX 4.0 cm LVOT Diameter 2.4 cm Aortic Root Diameter 3.4 cm LA Systolic Diameter LX 3.2 cm 3.0 - 4.0 / 2.7 - 3.8 cm LV Diastolic Volume MOD BP 71.8 cm??? 67 - 155 / 56 - 104 cm??? LV Systolic Volume MOD BP 39.8 cm??? - / 19 - 49 cm??? LV Ejection Fraction MOD BP 44.5 % >= 55 % LV Cardiac Index MOD BP 1227.2 cm???/min???m??? LV Diastolic Volume MOD 4C 92.7 cm??? LV Systolic Volume MOD 4C 54.5 cm??? LV Ejection Fraction MOD 4C 41.3 % LV Cardiac Index MOD 4C 1469.4 cm???/min???m??? LV Diastolic Length 4C 7.9 cm LV Systolic Length 4C 6.8 cm LV Diastolic Volume MOD 2C 48.1 cm??? LV Systolic Volume MOD 2C 27.5 cm??? LV Ejection Fraction MOD 2C 43.0 % LV Cardiac Index MOD 2C 793.7 cm???/min???m??? LV Diastolic Length 2C 7.7 cm LV Systolic Length 2C 7.3 cm LA Volume 59.7 cm??? 18 - 58 / 22 - 52 cm??? LA Volume Index 22.5 cm???/m??? 16 - 28 cm???/m??? DOPPLER LVOT Peak Velocity 85.5 cm/s LVOT Peak Gradient 2.9 mmHg LVOT Velocity Time Integral 12.5 cm LVOT Stroke Volume 55.0 cm??? LVOT Stroke Volume Index 21.7 ml/m??? LVOT Cardiac Index 2111.2 cm???/min???m??? MV Peak Velocity 72.9 cm/s MV Peak Gradient 2.1 mmHg MV Mean Velocity 45.0 cm/s MV Mean Gradient 0.9 mmHg MV Velocity Time Integral 20.6 cm MR Peak Velocity 213.8 cm/s MR Peak Gradient 18.3 mmHg Mitral E Point Velocity 70.9 cm/s Mitral A Point Velocity 57.4 cm/s Mitral E to A Ratio 1.2 MV Deceleration Time 176.4 ms TR Peak Velocity 185.8 cm/s TR Peak Gradient 13.8 mmHg Right Ventricular Systolic Press 18.8 mmHg PV Peak Velocity 62.8 cm/s PV Peak Gradient 1.6 mmHg FINDINGS Left Ventricle Normal LV size and wall thickness. Left ventricular ejection fraction is estimated at 20-25 %. Apical hypokinesia Right Ventricle Right ventricular dilatation. Right Atrium Normal right atrial size. RA area= 18.5cm2 Left Atrium Normal left atrial size. LA volume index= 23.5ml/m2 Mitral Valve Structurally normal mitral valve. Mild MR. Aortic Valve Mild AV calcification. Tricuspid Valve Tricuspid valve not well visualized. Trace TR. Pulmonic Valve Pulmonic valve not well visualized. No pulmonic regurgitation. Pericardium Not well visualized. Grossly normal. Aorta Normal size aortic root. CONCLUSIONS Globally reduced severe LV dysfunction. LVEF estimated at 20-25% Apical hypokinesia Mildly dilated right ventricle No significant aortic valve stenosis or regurgitation Mild MR RVSP is not elevated IVC is not dilated Previewed by: Dr David Mena (Electronically Signed) Final Date: 31 August 2023 12:00
[2023-08-31] MEDS: IPRATROPIUM-ALBUTEROL 3 ML NEB INHALATION SCH ×2 (12:10→15:53)
--- NOTE | 2023-08-31 13:05 | P.HPIM ---
History of Present Illness H&P Date: 08/31/23 History of present illness; patient is a 68-year-old gentleman past medical history significant for atrial fibrillation, bullous pemphigoid, hypertension who initially presented to the hospital for increasing weakness from long-term. In the ER, patient found to be in significant respiratory distress and was intubated. Patient was started on IV pressors and IV antibiotics and was transferred to ICU. Patient had a CODE BLUE called in ICU for PEA. The patient had CPR and was given epinephrine IV push 3 and sodium bicarbonate IV push 5. The patient subsequently had ROSC 10 minutes. He also developed A. fib for which an amiodarone 300 mg bolus was given. The patient was continued on Levophed and vasopressin infusions with epinephrine and sodium bicarbonate infusions initiated. Initial lab work done in the ER showed WBC 0.6, hemoglobin 8.4, platelet count 33, sodium 133, potassium 4.6, BUN 30, creatinine 0.75, lactate 2.3 calcium 7.6 Influenza A not detected Influenza B not detected RSV not detected COVID-19 not detected EKG done in the ER showed heart rate of 88, no ST segment elevation or depression seen, no T-wave inversions seen. X-ray hip showed right total hip arthroplasty Chest x-ray done in the ER showed new bibasilar acute infiltrate,/atelectasis X-ray right femur showed no acute fracture X-ray right tibia-fibula showed no acute fracture Patient admitted to ICU under internal medicine service REVIEW OF SYSTEMS: Cannot be obtained as patient is currently intubated and sedated PHYSICAL EXAMINATION: GENERAL: The patient intubated, chronically ill-looking HEENT: Pupils are round and equally reacting to light. EOMI. CARDIOVASCULAR: S1 and S2 present. No murmurs, rubs, or gallops. PULMONARY: Coarse breath sounds bilaterally, ABDOMEN: Soft, nontender, nondistended, normoactive bowel sounds. No palpable organomegaly. MUSCULOSKELETAL: No joint swelling or deformity. EXTREMITIES: No cyanosis, clubbing, or pedal edema. NEUROLOGICAL: Intubated SKIN: Bullous lesion present on right calf. Bruising present on abdomin Assessment and plan septic shock. Pancytopenia PEA cardiac arrest with return of spontaneous circulation within 10 minutes. Acute hypoxic respiratory failure, currently intubated on mechanical ventilator Paroxysmal A. fib Bullous pemphigoid disease History of erosive gastritis History of Hypertension History of prostate cancer Monitor vital signs Monitor CBC Monitor CMP Continue telemetry monitoring Trend Troponins Continue vent management per ICU Continue IV pressors with IV Levophed, epinephrine and vasopressin Continue IV Zosyn and vancomycin Continue stress dose of steroids Patient got 1 dose of filgrastim for leukopenia Continue IV fluid Ordered 2-D echo Consult hematology oncology. Consult ID Consult cardiology Critical care following Labs and medication were reviewed.. Continue same treatment. Continue with symptomatic treatment. Resume home medication. Monitor labs and vitals. DVT and GI prophylaxis. Further recommendations as per clinical course of the patient Dictation was produced using [employer] dictation software. please excuse any grammatical, word or spelling errors. Past Medical History Past Medical History: Atrial Fibrillation, Cancer, Diabetes Mellitus, H yperlipidemia, Hypertension, Osteoarthritis (OA), Skin Disorder Additional Past Medical History / Comment(s): has numbness virgilio legs-rt leg worse,hx basal cell CA removed from face,prostate CA-no radiation or chemo,fx back-in brace for 3 mos History of Any Multi-Drug Resistant Organisms: None Reported Past Surgical History: Joint Replacement, Orthopedic Surgery, Prostate Surgery, Tonsillectomy Additional Past Surgical History / Comment(s): rt hip replacement,prostatectomy,retinal reattachment,rt knee cartilage removed Past Anesthesia/Blood Transfusion Reactions: No Reported Reaction Additional Past Anesthesia/Blood Transfusion Reaction / Comment(s): no hx blood transfusion Past Psychological History: No Psychological Hx Reported Smoking Status: Never smoker Past Alcohol Use History: None Reported Past Drug Use History: None Reported - Past Family History Mother Family Medical History: No Reported History Daughter(s) Family Medical History: No Reported History Medications and Allergies Home Medications Medication Instructions Recorded Confirmed Type Fluticasone Nasal Pepin [Flonase 1 spr EA NOSTRIL DAILY@0800 11/14/18 08/30/23 History Nasal Pepin] Losartan Potassium [Cozaar] 100 mg PO DAILY@0800 11/14/18 08/30/23 History hydrALAZINE HCL [Apresoline] 50 mg PO BID@0800,1700 11/14/18 08/30/23 History Acetaminophen Tab [Tylenol] 650 mg PO Q4H PRN 08/30/23 08/30/23 History Clobetasol E 0.05% Cream 1 applic TOPICAL BID@0800,1700 08/30/23 08/30/23 History Fluconazole [Diflucan] 100 mg PO DAILY@0800 08/30/23 08/30/23 History Furosemide [Lasix] 40 mg PO DAILY@0800 08/30/23 08/30/23 History Insulin Aspart [NovoLOG] 10 units SQ AC-TID 08/30/23 08/30/23 History Insulin Aspart [NovoLOG] See Protocol SQ ACHS 08/30/23 08/30/23 History Insulin Detemir (Levemir) [Levemir] 30 unit SQ HS 08/30/23 08/30/23 History Magnesium Hydroxide [Milk of 7,200 mg PO DIRECTED PRN 08/30/23 08/30/23 History Magnesia Concentrate] Melatonin 5 mg PO HS 08/30/23 08/30/23 History Na Phos,M-B/Na Phos,Di-Ba [Fleet 133 ml RECTAL DIRECTED PRN 08/30/23 08/30/23 History Adult] Rivaroxaban [Xarelto] 20 mg PO DAILY@0800 08/30/23 08/30/23 History bisacodyL [Dulcolax] 10 mg RECTAL Q24H PRN 08/30/23 08/30/23 History dilTIAZem HCL [Cardizem LA] 180 mg PO DAILY@0800 08/30/23 08/30/23 History methylPREDNISolone [Medrol] 16 mg PO DAILY@0800 08/30/23 08/30/23 History polyethylene glycoL 3350 [Miralax] 17 gm PO BID@0800,1700 08/30/23 08/30/23 History Allergies Allergy/AdvReac Type Severity Reaction Status Date / Time No Known Allergies Allergy Verified 08/30/23 22:16 Physical Exam Vitals: Vital Signs Temp Pulse Resp BP Pulse Ox FiO2 08/31/23 08:54 100 08/31/23 07:30 93 21 84/51 87 L 08/31/23 07:00 224 H 142 H 59/24 89 L 08/31/23 06:30 97 18 82/61 94 L 08/31/23 06:00 144 H 17 106/69 94 L 08/31/23 05:54 100 08/31/23 05:37 95 85/34 99 01/20/24 05:36 101 H 92/30 99 08/31/23 05:35 97 110/38 100 08/31/23 05:30 103 H 25 H 84/44 95 08/31/23 05:00 99 23 89/27 96 08/31/23 04:40 80 08/31/23 04:36 23 08/31/23 04:00 88 85/34 99 08/31/23 03:45 85 30/10 92 L 08/31/23 03:20 80 08/31/23 03:18 96 110/38 100 08/31/23 02:45 95 117/62 96 08/31/23 02:30 91 70/42 100 08/31/23 02:15 85 60/34 100 08/31/23 02:00 87 80/34 100 08/31/23 01:45 80 75/39 100 08/31/23 01:30 86 84/50 96 100 08/31/23 01:29 100 08/31/23 00:45 65/40 08/31/23 00:30 56/38 08/31/23 00:00 72/46 95 08/30/23 23:30 20 82/46 94 L 08/30/23 23:00 84 20 88/46 96 08/30/23 22:29 86 22 74/41 94 L 08/30/23 22:00 80/50 88 L 08/30/23 21:30 83 20 83/21 90 L 08/30/23 21:24 99.1 F 90 20 82/47 90 L Intake and Output 08/30/23 08/31/23 08/31/23 22:59 06:59 14:59 Intake Total 130.698 242.407 Balance 130.698 242.407 Intake: Intake, IV Titration 130.698 242.407 Amount EPINEPHrine 4 mg In 7.593 242.407 Dextrose 5% in Water 250 ml @ 0.03 MCG/KG/MIN 14. 696 mls/hr IV .Q17H1M [facility] Rx#:[id number] Norepinephrine 32 mg In 53.704 Sodium Chloride 0.9% 218 ml @ 0.03 MCG/KG/MIN 1. 837 mls/hr IV .Q24H [facility] Rx#:[id number] Norepinephrine 4 mg In 41.891 Sodium Chloride 0.9% 250 ml @ 0.03 MCG/KG/MIN 14. 932 mls/hr IV .Q17H1M [facility] Rx#:[id number] Vasopressin 60 unit In 0.077 Sodium Chloride 0.9% 150 ml @ 0.03 UNITS/MIN 4.59 mls/hr IV .Q24H [facility] Rx#: [id number] propofoL 1,000 mg In 27.433 Empty Bag 1 bag @ 15 MCG/ KG/MIN 11.757 mls/hr IV . Q8H31M [facility] Rx#:[id number] Other: Weight 130.635 kg ABP, PAP, CO, CI - Last 8 Hours Arterial Blood Pressure 96/50 Arterial Blood Pressure 90/41 Arterial Blood Pressure 109/49 Arterial Blood Pressure 94/31 Arterial Blood Pressure 98/39 Results CBC & Chem 7: 08/31/23 05:55 08/31/23 05:55 Labs: Abnormal Lab Results - Last 24 Hours (Table) 08/30/23 08/30/23 08/30/23 Range/Units 22:05 22:05 22:05 WBC (3.8-10.6) k/uL RBC (4.30-5.90) m/uL Hgb (13.0-17.5) gm/dL Hct (39.0-53.0) % RDW (11.5-15.5) % Plt Count (150-450) k/uL Neutrophils # (Manual) (1.3-7.7) k/uL Metamyelocytes # (Man) (0) k/uL PT 14.3 H (10.0-12.5) sec INR 1.4 H (<1.2) ABG pH (7.35-7.45) ABG pCO2 (35-45) mmHg ABG pO2 (83-108) mmHg ABG HCO3 (21-25) mmol/L ABG Total CO2 (19-24) mmol/L ABG O2 Saturation (94-97) % Sodium 133 L (137-145) mmol/L Chloride 108 H (98-107) mmol/L Carbon Dioxide (22-30) mmol/L BUN 38 H (9-20) mg/dL Glucose 68 L (74-99) mg/dL POC Glucose (mg/dL) (70-110) mg/dL Plasma Lactic Acid Zachery 2.3 H* (0.7-2.0) mmol/L Calcium 7.6 L (8.4-10.2) mg/dL Troponin I (0.000-0.034) ng/mL Total Protein 4.0 L (6.3-8.2) g/dL Albumin 1.9 L (3.5-5.0) g/dL TSH 0.040 L (0.465-4.680) mIU/L 08/30/23 08/30/23 08/31/23 Range/Units 22:42 22:57 03:15 WBC 0.6 L* (3.8-10.6) k/uL RBC 2.55 L (4.30-5.90) m/uL Hgb 8.4 L (13.0-17.5) gm/dL Hct 24.6 L (39.0-53.0) % RDW 15.8 H (11.5-15.5) % Plt Count 33 L (150-450) k/uL Neutrophils # (Manual) (1.3-7.7) k/uL Metamyelocytes # (Man) (0) k/uL PT (10.0-12.5) sec INR (<1.2) ABG pH 7.23 L (7.35-7.45) ABG pCO2 53 H (35-45) mmHg ABG pO2 211 H (83-108) mmHg ABG HCO3 (21-25) mmol/L ABG Total CO2 (19-24) mmol/L ABG O2 Saturation 99.7 H (94-97) % Sodium (137-145) mmol/L Chloride (98-107) mmol/L Carbon Dioxide (22-30) mmol/L BUN (9-20) mg/dL Glucose (74-99) mg/dL POC Glucose (mg/dL) (70-110) mg/dL Plasma Lactic Acid Zachery (0.7-2.0) mmol/L Calcium (8.4-10.2) mg/dL Troponin I 0.041 H* (0.000-0.034) ng/mL Total Protein (6.3-8.2) g/dL Albumin (3.5-5.0) g/dL TSH (0.465-4.680) mIU/L 08/31/23 08/31/23 08/31/23 Range/Units 04:15 04:43 04:44 WBC (3.8-10.6) k/uL RBC (4.30-5.90) m/uL Hgb (13.0-17.5) gm/dL Hct (39.0-53.0) % RDW (11.5-15.5) % Plt Count (150-450) k/uL Neutrophils # (Manual) (1.3-7.7) k/uL Metamyelocytes # (Man) (0) k/uL PT (10.0-12.5) sec INR (<1.2) ABG pH 7.25 L (7.35-7.45) ABG pCO2 50 H (35-45) mmHg ABG pO2 (83-108) mmHg ABG HCO3 (21-25) mmol/L ABG Total CO2 (19-24) mmol/L ABG O2 Saturation (94-97) % Sodium (137-145) mmol/L Chloride (98-107) mmol/L Carbon Dioxide (22-30) mmol/L BUN (9-20) mg/dL Glucose (74-99) mg/dL POC Glucose (mg/dL) 44 L 196 H (70-110) mg/dL Plasma Lactic Acid Zachery (0.7-2.0) mmol/L Calcium (8.4-10.2) mg/dL Troponin I (0.000-0.034) ng/mL Total Protein (6.3-8.2) g/dL Albumin (3.5-5.0) g/dL TSH (0.465-4.680) mIU/L 08/31/23 08/31/23 08/31/23 Range/Units 04:45 04:45 05:13 WBC 1.1 L* (3.8-10.6) k/uL RBC 2.43 L (4.30-5.90) m/uL Hgb 8.2 L (13.0-17.5) gm/dL Hct 24.1 L (39.0-53.0) % RDW 15.8 H (11.5-15.5) % Plt Count 34 L (150-450) k/uL Neutrophils # (Manual) 1.00 L (1.3-7.7) k/uL Metamyelocytes # (Man) 0.09 H (0) k/uL PT (10.0-12.5) sec INR (<1.2) ABG pH (7.35-7.45) ABG pCO2 (35-45) mmHg ABG pO2 (83-108) mmHg ABG HCO3 (21-25) mmol/L ABG Total CO2 (19-24) mmol/L ABG O2 Saturation (94-97) % Sodium 132 L (137-145) mmol/L Chloride 111 H (98-107) mmol/L Carbon Dioxide 20 L (22-30) mmol/L BUN 39 H (9-20) mg/dL Glucose 168 H (74-99) mg/dL POC Glucose (mg/dL) 146 H (70-110) mg/dL Plasma Lactic Acid Zachery (0.7-2.0) mmol/L Calcium 6.9 L (8.4-10.2) mg/dL Troponin I (0.000-0.034) ng/mL Total Protein (6.3-8.2) g/dL Albumin (3.5-5.0) g/dL TSH (0.465-4.680) mIU/L 08/31/23 08/31/23 08/31/23 Range/Units 05:22 05:49 05:55 WBC 0.7 L* (3.8-10.6) k/uL RBC 2.38 L (4.30-5.90) m/uL Hgb 7.8 L (13.0-17.5) gm/dL Hct 23.4 L (39.0-53.0) % RDW 15.8 H (11.5-15.5) % Plt Count 29 L (150-450) k/uL Neutrophils # (Manual) (1.3-7.7) k/uL Metamyelocytes # (Man) (0) k/uL PT (10.0-12.5) sec INR (<1.2) ABG pH 7.25 L (7.35-7.45) ABG pCO2 59 H (35-45) mmHg ABG pO2 64 L (83-108) mmHg ABG HCO3 26 H (21-25) mmol/L ABG Total CO2 28 H (19-24) mmol/L ABG O2 Saturation 90.0 L (94-97) % Sodium (137-145) mmol/L Chloride (98-107) mmol/L Carbon Dioxide (22-30) mmol/L BUN (9-20) mg/dL Glucose (74-99) mg/dL POC Glucose (mg/dL) 151 H (70-110) mg/dL Plasma Lactic Acid Zachery (0.7-2.0) mmol/L Calcium (8.4-10.2) mg/dL Troponin I (0.000-0.034) ng/mL Total Protein (6.3-8.2) g/dL Albumin (3.5-5.0) g/dL TSH (0.465-4.680) mIU/L 08/31/23 08/31/23 08/31/23 Range/Units 05:55 06:18 06:39 WBC (3.8-10.6) k/uL RBC (4.30-5.90) m/uL Hgb (13.0-17.5) gm/dL Hct (39.0-53.0) % RDW (11.5-15.5) % Plt Count (150-450) k/uL Neutrophils # (Manual) (1.3-7.7) k/uL Metamyelocytes # (Man) (0) k/uL PT (10.0-12.5) sec INR (<1.2) ABG pH (7.35-7.45) ABG pCO2 (35-45) mmHg ABG pO2 (83-108) mmHg ABG HCO3 (21-25) mmol/L ABG Total CO2 (19-24) mmol/L ABG O2 Saturation (94-97) % Sodium (137-145) mmol/L Chloride 110 H (98-107) mmol/L Carbon Dioxide (22-30) mmol/L BUN 40 H (9-20) mg/dL Glucose 139 H (74-99) mg/dL POC Glucose (mg/dL) 143 H 171 H (70-110) mg/dL Plasma Lactic Acid Zachery (0.7-2.0) mmol/L Calcium 6.6 L (8.4-10.2) mg/dL Troponin I (0.000-0.034) ng/mL Total Protein (6.3-8.2) g/dL Albumin (3.5-5.0) g/dL TSH (0.465-4.680) mIU/L
[2023-08-31 13:55] VITALS: TEMP 98.2
[2023-08-31] MEDS ORDERED: VANCOMYCIN 2,000 MG in SODIUM CHLORIDE 0.9% 500 ML 500 ML IVPB SCH (14:00)
[2023-08-31] MEDS ORDERED: CEFEPIME 2 GM in SODIUM CHLORIDE 0.9% 100 ML IVPB SCH (14:00)
--- NOTE | 2023-08-31 14:06 | P.CONS ---
History of Present Illness - Reason for Consult Consult date: 08/31/23 Pancytopenia - History of Present Illness Mr. Grady is a 68-year-old gentleman with a past medical history of atrial fibrillation on Xarelto as well as bullous pemphigoid treated with IV steroids and oral methotrexate who presents to the ED with acute hypoxic respiratory failure. History is limited due to mechanical intubation. In August 2023, he was admitted to [facility] and subsequently transferred to [facility] in [place] for anemia secondary to GI bleed. Following discharge, he was sent to [facility] for rehabilitation. He presented from [facility] with progressive dyspnea and found to be in acute hypoxic respiratory failure requiring intubation with mechanical ventilation shortly after presentation in the ED. His hospital course was subsequently complicated by PEA cardiac arrest requiring CPR along with administration of epinephrine x 3 and sodium bicarbonate x 5. He had return of spontaneous circulation approximately 10 minutes after CPR initiation. He was originally found to be in atrial fibrillation and was given amiodarone. Currently he is on norepinephrine, epinephrine, and vasopressin infusions. CBC on admission was notable for WBC 0.6, hemoglobin 8.4 (MCV 96.7), platelets 33. Slight macrocytosis and toxic granulation with vacuolation was noted on differential. INR was 1.4 with PT 14.3 and APTT 22.3. Kidney and liver function from CMP on admission was within normal limits. It is unclear when he last took methotrexate. Formal echocardiogram performed earlier today revealed EF of 20 to 25% with globally reduced severe left ventricular dysfunction and apical hypokinesis. Right ventricle was mildly dilated with no significant valvular abnormalities or elevated right ventricular systolic pressure. Review of Systems ROS unobtainable: due to endotracheal tube Past Medical History Past Medical History: Atrial Fibrillation, Cancer, Diabetes Mellitus, Hyperlipidemia, Hypertension, Osteoarthritis (OA), Skin Disorder Additional Past Medical History / Comment(s): has numbness virgilio legs-rt leg worse,hx basal cell CA removed from face,prostate CA-no radiation or chemo,fx back-in brace for 3 mos History of Any Multi-Drug Resistant Organisms: None Reported Past Surgical History: Joint Replacement, Orthopedic Surgery, Prostate Surgery, Tonsillectomy Additional Past Surgical History / Comment(s): rt hip replacement,prostatectomy,retinal reattachment,rt knee cartilage removed Past Anesthesia/Blood Transfusion Reactions: No Reported Reaction Additional Past Anesthesia/Blood Transfusion Reaction / Comm: no hx blood transfusion Smoking Status: Former smoker - Past Family History Mother Family Medical History: No Reported History Daughter(s) Family Medical History: No Reported History Medications and Allergies Home Medications Medication Instructions Recorded Confirmed Type Fluticasone Nasal [place] [Flonase 1 spr EA NOSTRIL DAILY@0800 11/14/18 08/30/23 History Nasal [place]] Losartan Potassium [Cozaar] 100 mg PO DAILY@0800 11/14/18 08/30/23 History hydrALAZINE HCL [Apresoline] 50 mg PO BID@0800,1700 11/14/18 08/30/23 History Acetaminophen Tab [Tylenol] 650 mg PO Q4H PRN 08/30/23 08/30/23 History Clobetasol E 0.05% Cream 1 applic TOPICAL BID@0800,1700 08/30/23 08/30/23 History Fluconazole [Diflucan] 100 mg PO DAILY@0800 08/30/23 08/30/23 History Furosemide [Lasix] 40 mg PO DAILY@0800 08/30/23 08/30/23 History Insulin Aspart [NovoLOG] 10 units SQ AC-TID 08/30/23 08/30/23 History Insulin Aspart [NovoLOG] See Protocol SQ ACHS 08/30/23 08/30/23 History Insulin Detemir (Levemir) [Levemir] 30 unit SQ HS 08/30/23 08/30/23 History Magnesium Hydroxide [Milk of 7,200 mg PO DIRECTED PRN 08/30/23 08/30/23 History Magnesia Concentrate] Melatonin 5 mg PO 08/30/23 08/30/23 History Na Phos,M-B/Na Phos,Di-Ba [Fleet 133 ml RECTAL DIRECTED PRN 08/30/23 08/30/23 History Adult] Rivaroxaban [Xarelto] 20 mg PO DAILY@0800 08/30/23 08/30/23 History bisacodyL [Dulcolax] 10 mg RECTAL Q24H PRN 08/30/23 08/30/23 History dilTIAZem HCL [Cardizem LA] 180 mg PO DAILY@0800 08/30/23 08/30/23 History methylPREDNISolone [Medrol] 16 mg PO DAILY@0800 08/30/23 08/30/23 History polyethylene glycoL 3350 [Miralax] 17 gm PO BID@0800,1700 08/30/23 08/30/23 History Allergies Allergy/AdvReac Type Severity Reaction Status Date / Time No Known Allergies Allergy Verified 08/30/23 22:16 Physical Exam Vitals: Vital Signs Temp Pulse Pulse Resp BP Pulse Ox FiO2 08/31/23 13:30 89 25 H 08/31/23 13:15 96 25 H 80/48 08/31/23 13:00 97 25 H 100 08/31/23 12:45 97 24 08/31/23 12:30 98 26 H 08/31/23 12:22 98 28 H 08/31/23 12:15 98 22 94/47 84 L 08/31/23 12:11 95 28 H 08/31/23 12:07 100 08/31/23 12:00 98.2 F 99 26 H 100 08/31/23 11:45 99 27 H 08/31/23 11:30 101 H 25 H 08/31/23 11:15 101 H 75/58 08/31/23 11:00 100 21 84/57 08/31/23 10:45 101 H 32 H 84/57 08/31/23 10:30 100 24 84/57 08/31/23 10:15 98 23 84/57 08/31/23 10:00 96 22 100 08/31/23 09:45 94 23 08/31/23 09:30 93 24 77/47 08/31/23 09:00 95 23 88/47 72 L 100 08/31/23 08:54 100 08/31/23 08:30 99.4 F 97 24 88/47 86 L 08/31/23 08:00 98 90 24 94/60 90 L 100 08/31/23 07:30 93 21 84/51 87 L 08/31/23 07:00 224 H 142 H 59/24 89 L 08/31/23 06:30 97 18 82/61 94 L 08/31/23 06:00 144 H 17 106/69 94 L 08/31/23 05:54 100 08/31/23 05:37 95 85/34 99 08/31/23 05:36 101 H 92/30 99 08/31/23 05:35 97 110/38 100 08/31/23 05:30 103 H 25 H 84/44 95 08/31/23 05:00 99 23 89/27 96 08/31/23 04:40 80 08/31/23 04:36 23 08/31/23 04:00 88 85/34 99 08/31/23 03:45 85 30/10 92 L 08/31/23 03:20 80 08/31/23 03:18 96 110/38 100 08/31/23 02:45 95 117/62 96 08/31/23 02:30 91 70/42 100 08/31/23 02:15 85 60/34 100 08/31/23 02:00 87 80/34 100 08/31/23 01:45 80 75/39 100 08/31/23 01:30 86 84/50 96 100 08/31/23 01:29 100 08/31/23 00:45 65/40 08/31/23 00:30 56/38 08/31/23 00:00 72/46 95 08/30/23 23:30 20 82/46 94 L 08/30/23 23:00 84 20 88/46 96 08/30/23 22:29 86 22 74/41 94 L 08/30/23 22:00 80/50 88 L 08/30/23 21:30 83 20 83/21 90 L 08/30/23 21:24 99.1 F 90 20 82/47 90 L Intake and Output 08/30/23 08/31/23 08/31/23 22:59 06:59 14:59 Intake Total 284.855 2019.703 Output Total 40 Balance 354.603 1023.703 Intake: IV 2818 Dextrose 5% in Water 1, 800 000 ml @ 100 mls/hr IV . [id number] LEESA with Sodium Bicarb (1 Meq/ml) 150 ml Rx#:[id number] Pressure Bag - 0.9 sodium 18 chloride Sodium Chloride 0.9% 1, 2000 000 ml @ 999 mls/hr IV . Q1H1M ONE Rx#:[id number] Intake, IV Titration 130.698 931.703 Amount Anidulafungin 200 mg In 168 Sodium Chloride 0.9% 200 ml @ 84 mls/hr IVPB ONCE ONE Rx#:[id number] EPINEPHrine 4 mg In 7.593 492.407 Dextrose 5% in Water 250 ml @ 0.03 MCG/KG/MIN 14. 696 mls/hr IV .Q17H1M [facility] Rx#:[id number] Norepinephrine 32 mg In 53.704 196.296 Sodium Chloride 0.9% 218 ml @ 0.03 MCG/KG/MIN 1. 837 mls/hr IV .Q24H ONE Rx#:[id number] Norepinephrine 4 mg In 41.891 Sodium Chloride 0.9% 250 ml @ 0.03 MCG/KG/MIN 14. 932 mls/hr IV .Q17H1M [facility] Rx#:[id number] Sodium Chloride 0.9% 1, 75 000 ml @ 999 mls/hr IV . Q1H1M [facility] Rx#:[id number] Vasopressin 60 unit In 0.077 Sodium Chloride 0.9% 150 ml @ 0.03 UNITS/MIN 4.59 mls/hr IV .Q24H [facility] Rx#: [id number] propofoL 1,000 mg In 27.433 Empty Bag 1 bag @ 15 MCG/ KG/MIN 11.757 mls/hr IV . Q8H31M [facility] Rx#:[id number] Output: Urine 40 Other: Voiding Method Indwelling Catheter Weight 130.635 kg 130.635 kg ABP, PAP, CO, CI - Last 8 Hours Arterial Blood Pressure 62/41 Arterial Blood Pressure 73/45 Arterial Blood Pressure 74/49 Arterial Blood Pressure 72/48 Arterial Blood Pressure 71/47 Arterial Blood Pressure 60/41 Arterial Blood Pressure 72/47 Arterial Blood Pressure 69/43 Arterial Blood Pressure 74/47 Arterial Blood Pressure 74/47 Arterial Blood Pressure 78/49 Arterial Blood Pressure 71/45 Arterial Blood Pressure 78/46 Arterial Blood Pressure 80/48 Arterial Blood Pressure 80/47 Arterial Blood Pressure 76/47 Arterial Blood Pressure 70/42 Arterial Blood Pressure 49/31 Arterial Blood Pressure 84/47 Arterial Blood Pressure 96/50 Arterial Blood Pressure 90/41 Arterial Blood Pressure 109/49 - Constitutional Intubated and sedated - EENT Fixed pinpoint pupils on exam that were not responsive to light. Endotracheal tube and orogastric tube midline - Respiratory Mechanical breath sounds - Cardiovascular Rhythm: regular - Gastrointestinal General gastrointestinal: no distended, soft - Integumentary Ecchymosis at site of right femoral central venous catheter - Neurologic Sedated and unresponsive Results CBC & Chem 7: 08/31/23 05:55 08/31/23 05:55 Labs: Abnormal Lab Results - Last 24 Hours (Table) 08/30/23 08/30/23 08/30/23 Range/Units 22:05 22:05 22:05 WBC (3.8-10.6) k/uL RBC (4.30-5.90) m/uL Hgb (13.0-17.5) gm/dL Hct (39.0-53.0) % RDW (11.5-15.5) % Plt Count (150-450) k/uL Neutrophils # (Manual) (1.3-7.7) k/uL Metamyelocytes # (Man) (0) k/uL PT 14.3 H (10.0-12.5) sec INR 1.4 H (<1.2) APTT (22.0-30.0) sec ABG pH (7.35-7.45) ABG pCO2 (35-45) mmHg ABG pO2 (83-108) mmHg ABG HCO3 (21-25) mmol/L ABG Total CO2 (19-24) mmol/L ABG O2 Saturation (94-97) % ABG Lactic Acid (0.5-1.6) mmol/L Sodium 133 L (137-145) mmol/L Chloride 108 H (98-107) mmol/L Carbon Dioxide (22-30) mmol/L BUN 38 H (9-20) mg/dL Glucose 68 L (74-99) mg/dL POC Glucose (mg/dL) (70-110) mg/dL Plasma Lactic Acid Zachery 2.3 H* (0.7-2.0) mmol/L Calcium 7.6 L (8.4-10.2) mg/dL Lactate Dehydrogenase (120-246) U/L Troponin I (0.000-0.034) ng/mL Total Protein 4.0 L (6.3-8.2) g/dL Albumin 1.9 L (3.5-5.0) g/dL TSH 0.040 L (0.465-4.680) mIU/L Urine Bacteria (None) /hpf Urine Mucus (None) /hpf 08/30/23 08/30/23 08/31/23 Range/Units 22:42 22:57 03:15 WBC 0.6 L* (3.8-10.6) k/uL RBC 2.55 L (4.30-5.90) m/uL Hgb 8.4 L (13.0-17.5) gm/dL Hct 24.6 L (39.0-53.0) % RDW 15.8 H (11.5-15.5) % Plt Count 33 L (150-450) k/uL Neutrophils # (Manual) (1.3-7.7) k/uL Metamyelocytes # (Man) (0) k/uL PT (10.0-12.5) sec INR (<1.2) APTT (22.0-30.0) sec ABG pH 7.23 L (7.35-7.45) ABG pCO2 53 H (35-45) mmHg ABG pO2 211 H (83-108) mmHg ABG HCO3 (21-25) mmol/L ABG Total CO2 (19-24) mmol/L ABG O2 Saturation 99.7 H (94-97) % ABG Lactic Acid (0.5-1.6) mmol/L Sodium (137-145) mmol/L Chloride (98-107) mmol/L Carbon Dioxide (22-30) mmol/L BUN (9-20) mg/dL Glucose (74-99) mg/dL POC Glucose (mg/dL) (70-110) mg/dL Plasma Lactic Acid Zachery (0.7-2.0) mmol/L Calcium (8.4-10.2) mg/dL Lactate Dehydrogenase (120-246) U/L Troponin I 0.041 H* (0.000-0.034) ng/mL Total Protein (6.3-8.2) g/dL Albumin (3.5-5.0) g/dL TSH (0.465-4.680) mIU/L Urine Bacteria (None) /hpf Urine Mucus (None) /hpf 08/31/23 08/31/23 08/31/23 Range/Units 04:15 04:43 04:44 WBC (3.8-10.6) k/uL RBC (4.30-5.90) m/uL Hgb (13.0-17.5) gm/dL Hct (39.0-53.0) % RDW (11.5-15.5) % Plt Count (150-450) k/uL Neutrophils # (Manual) (1.3-7.7) k/uL Metamyelocytes # (Man) (0) k/uL PT (10.0-12.5) sec INR (<1.2) APTT (22.0-30.0) sec ABG pH 7.25 L (7.35-7.45) ABG pCO2 50 H (35-45) mmHg ABG pO2 (83-108) mmHg ABG HCO3 (21-25) mmol/L ABG Total CO2 (19-24) mmol/L ABG O2 Saturation (94-97) % ABG Lactic Acid (0.5-1.6) mmol/L Sodium (137-145) mmol/L Chloride (98-107) mmol/L Carbon Dioxide (22-30) mmol/L BUN (9-20) mg/dL Glucose (74-99) mg/dL POC Glucose (mg/dL) 44 L 196 H (70-110) mg/dL Plasma Lactic Acid Zachery (0.7-2.0) mmol/L Calcium (8.4-10.2) mg/dL Lactate Dehydrogenase (120-246) U/L Troponin I (0.000-0.034) ng/mL Total Protein (6.3-8.2) g/dL Albumin (3.5-5.0) g/dL TSH (0.465-4.680) mIU/L Urine Bacteria (None) /hpf Urine Mucus (None) /hpf 08/31/23 08/31/23 08/31/23 Range/Units 04:45 04:45 05:13 WBC 1.1 L* (3.8-10.6) k/uL RBC 2.43 L (4.30-5.90) m/uL Hgb 8.2 L (13.0-17.5) gm/dL Hct 24.1 L (39.0-53.0) % RDW 15.8 H (11.5-15.5) % Plt Count 34 L (150-450) k/uL Neutrophils # (Manual) 1.00 L (1.3-7.7) k/uL Metamyelocytes # (Man) 0.09 H (0) k/uL PT (10.0-12.5) sec INR (<1.2) APTT (22.0-30.0) sec ABG pH (7.35-7.45) ABG pCO2 (35-45) mmHg ABG pO2 (83-108) mmHg ABG HCO3 (21-25) mmol/L ABG Total CO2 (19-24) mmol/L ABG O2 Saturation (94-97) % ABG Lactic Acid (0.5-1.6) mmol/L Sodium 132 L (137-145) mmol/L Chloride 111 H (98-107) mmol/L Carbon Dioxide 20 L (22-30) mmol/L BUN 39 H (9-20) mg/dL Glucose 168 H (74-99) mg/dL POC Glucose (mg/dL) 146 H (70-110) mg/dL Plasma Lactic Acid Zachery (0.7-2.0) mmol/L Calcium 6.9 L (8.4-10.2) mg/dL Lactate Dehydrogenase (120-246) U/L Troponin I (0.000-0.034) ng/mL Total Protein (6.3-8.2) g/dL Albumin (3.5-5.0) g/dL TSH (0.465-4.680) mIU/L Urine Bacteria (None) /hpf Urine Mucus (None) /hpf 08/31/23 08/31/23 08/31/23 Range/Units 05:22 05:49 05:55 WBC 0.7 L* (3.8-10.6) k/uL RBC 2.38 L (4.30-5.90) m/uL Hgb 7.8 L (13.0-17.5) gm/dL Hct 23.4 L (39.0-53.0) % RDW 15.8 H (11.5-15.5) % Plt Count 29 L (150-450) k/uL Neutrophils # (Manual) (1.3-7.7) k/uL Metamyelocytes # (Man) (0) k/uL PT (10.0-12.5) sec INR (<1.2) APTT (22.0-30.0) sec ABG pH 7.25 L (7.35-7.45) ABG pCO2 59 H (35-45) mmHg ABG pO2 64 L (83-108) mmHg ABG HCO3 26 H (21-25) mmol/L ABG Total CO2 28 H (19-24) mmol/L ABG O2 Saturation 90.0 L (94-97) % ABG Lactic Acid (0.5-1.6) mmol/L Sodium (137-145) mmol/L Chloride (98-107) mmol/L Carbon Dioxide (22-30) mmol/L BUN (9-20) mg/dL Glucose (74-99) mg/dL POC Glucose (mg/dL) 151 H (70-110) mg/dL Plasma Lactic Acid Zachery (0.7-2.0) mmol/L Calcium (8.4-10.2) mg/dL Lactate Dehydrogenase (120-246) U/L Troponin I (0.000-0.034) ng/mL Total Protein (6.3-8.2) g/dL Albumin (3.5-5.0) g/dL TSH (0.465-4.680) mIU/L Urine Bacteria (None) /hpf Urine Mucus (None) /hpf 08/31/23 08/31/23 08/31/23 Range/Units 05:55 06:18 06:39 WBC (3.8-10.6) k/uL RBC (4.30-5.90) m/uL Hgb (13.0-17.5) gm/dL Hct (39.0-53.0) % RDW (11.5-15.5) % Plt Count (150-450) k/uL Neutrophils # (Manual) (1.3-7.7) k/uL Metamyelocytes # (Man) (0) k/uL PT (10.0-12.5) sec INR (<1.2) APTT (22.0-30.0) sec ABG pH (7.35-7.45) ABG pCO2 (35-45) mmHg ABG pO2 (83-108) mmHg ABG HCO3 (21-25) mmol/L ABG Total CO2 (19-24) mmol/L ABG O2 Saturation (94-97) % ABG Lactic Acid (0.5-1.6) mmol/L Sodium (137-145) mmol/L Chloride 110 H (98-107) mmol/L Carbon Dioxide (22-30) mmol/L BUN 40 H (9-20) mg/dL Glucose 139 H (74-99) mg/dL POC Glucose (mg/dL) 143 H 171 H (70-110) mg/dL Plasma Lactic Acid Zachery (0.7-2.0) mmol/L Calcium 6.6 L (8.4-10.2) mg/dL Lactate Dehydrogenase (120-246) U/L Troponin I (0.000-0.034) ng/mL Total Protein (6.3-8.2) g/dL Albumin (3.5-5.0) g/dL TSH (0.465-4.680) mIU/L Urine Bacteria (None) /hpf Urine Mucus (None) /hpf 08/31/23 08/31/23 08/31/23 Range/Units 09:05 09:05 09:05 WBC (3.8-10.6) k/uL RBC (4.30-5.90) m/uL Hgb (13.0-17.5) gm/dL Hct (39.0-53.0) % RDW (11.5-15.5) % Plt Count (150-450) k/uL Neutrophils # (Manual) (1.3-7.7) k/uL Metamyelocytes # (Man) (0) k/uL PT 16.5 H (10.0-12.5) sec INR 1.6 H (<1.2) APTT 37.5 H (22.0-30.0) sec ABG pH (7.35-7.45) ABG pCO2 (35-45) mmHg ABG pO2 (83-108) mmHg ABG HCO3 (21-25) mmol/L ABG Total CO2 (19-24) mmol/L ABG O2 Saturation (94-97) % ABG Lactic Acid 3.6 H* (0.5-1.6) mmol/L Sodium (137-145) mmol/L Chloride (98-107) mmol/L Carbon Dioxide (22-30) mmol/L BUN (9-20) mg/dL Glucose (74-99) mg/dL POC Glucose (mg/dL) (70-110) mg/dL Plasma Lactic Acid Zachery (0.7-2.0) mmol/L Calcium (8.4-10.2) mg/dL Lactate Dehydrogenase (120-246) U/L Troponin I 0.066 H* (0.000-0.034) ng/mL Total Protein (6.3-8.2) g/dL Albumin (3.5-5.0) g/dL TSH (0.465-4.680) mIU/L Urine Bacteria (None) /hpf Urine Mucus (None) /hpf 08/31/23 08/31/23 08/31/23 Range/Units 09:05 09:15 10:10 WBC (3.8-10.6) k/uL RBC (4.30-5.90) m/uL Hgb (13.0-17.5) gm/dL Hct (39.0-53.0) % RDW (11.5-15.5) % Plt Count (150-450) k/uL Neutrophils # (Manual) (1.3-7.7) k/uL Metamyelocytes # (Man) (0) k/uL PT (10.0-12.5) sec INR (<1.2) APTT (22.0-30.0) sec ABG pH 7.29 L (7.35-7.45) ABG pCO2 46 H (35-45) mmHg ABG pO2 54 L* (83-108) mmHg ABG HCO3 (21-25) mmol/L ABG Total CO2 (19-24) mmol/L ABG O2 Saturation 87.2 L (94-97) % ABG Lactic Acid (0.5-1.6) mmol/L Sodium (137-145) mmol/L Chloride (98-107) mmol/L Carbon Dioxide (22-30) mmol/L BUN (9-20) mg/dL Glucose (74-99) mg/dL POC Glucose (mg/dL) (70-110) mg/dL Plasma Lactic Acid Zachery (0.7-2.0) mmol/L Calcium (8.4-10.2) mg/dL Lactate Dehydrogenase 295 H (120-246) U/L Troponin I (0.000-0.034) ng/mL Total Protein (6.3-8.2) g/dL Albumin (3.5-5.0) g/dL TSH (0.465-4.680) mIU/L Urine Bacteria Rare H (None) /hpf Urine Mucus Rare H (None) /hpf 08/31/23 08/31/23 Range/Units 11:39 13:08 WBC (3.8-10.6) k/uL RBC (4.30-5.90) m/uL Hgb (13.0-17.5) gm/dL Hct (39.0-53.0) % RDW (11.5-15.5) % Plt Count (150-450) k/uL Neutrophils # (Manual) (1.3-7.7) k/uL Metamyelocytes # (Man) (0) k/uL PT (10.0-12.5) sec INR (<1.2) APTT (22.0-30.0) sec ABG pH (7.35-7.45) ABG pCO2 (35-45) mmHg ABG pO2 (83-108) mmHg ABG HCO3 (21-25) mmol/L ABG Total CO2 (19-24) mmol/L ABG O2 Saturation (94-97) % ABG Lactic Acid 3.7 H* (0.5-1.6) mmol/L Sodium (137-145) mmol/L Chloride (98-107) mmol/L Carbon Dioxide (22-30) mmol/L BUN (9-20) mg/dL Glucose (74-99) mg/dL POC Glucose (mg/dL) 232 H (70-110) mg/dL Plasma Lactic Acid Zachery (0.7-2.0) mmol/L Calcium (8.4-10.2) mg/dL Lactate Dehydrogenase (120-246) U/L Troponin I (0.000-0.034) ng/mL Total Protein (6.3-8.2) g/dL Albumin (3.5-5.0) g/dL TSH (0.465-4.680) mIU/L Urine Bacteria (None) /hpf Urine Mucus (None) /hpf Microbiology - Last 24 Hours (Table) 08/30/23 22:00 Blood Culture Gram Stain - Preliminary Blood 08/30/23 22:21 Blood Culture Gram Stain - Preliminary Blood Abdominal x-ray: report reviewed, image reviewed Assessment and Plan (1) Acute hypoxic respiratory failure Current Visit: Yes Status: Acute Code(s): J96.01 - ACUTE RESPIRATORY FAILURE WITH HYPOXIA SNOMED Code(s): 81166664 (2) PEA (Pulseless electrical activity) Current Visit: Yes Status: Acute Code(s): I46.9 - CARDIAC ARREST, CAUSE UNSPECIFIED SNOMED Code(s): 912072467 (3) Pancytopenia Current Visit: Yes Status: Acute Code(s): D61.818 - OTHER PANCYTOPENIA SNOMED Code(s): 308364838 Plan: #Pancytopenia -Labs on admission were consistent with pancytopenia with WBC 0.6, hemoglobin 8.4 (MCV 96.7 (, platelets 33 -CBC on 08/28/2023 prior to admission revealed WBC 13.49 (ANC 11.78), hemoglobin 10.4, platelets 132 -No prior CBCs were available in our system or in outside records for review on today's consultation -His hospital course has been complicated by acute hypoxic respiratory failure followed by pulseless electrical activity requiring CPR -Pancytopenia could be due to to inflammation from acute illness of unclear etiology. Given the acute drop in platelets, DIC is also a possibility -As he had been prescribed methotrexate, is unclear if there is any contribution from acute methotrexate toxicity -Iron studies, vitamin B12, folic acid ordered to assess for nutritional etiologies of pancytopenia -Haptoglobin, LDH, reticulocyte count ordered to assess for hemolysis, which appears to be not likely -Fibrinogen in addition to coagulation studies ordered to assess for DIC -Methotrexate level also ordered given documented history of methotrexate -Leucovorin could be considered if there is concern for methotrexate toxicity, although this is not likely to impact his clinical course given his poor progn osis -Filgrastim has been ordered per primary team #Acute hypoxic respiratory failure complicated by PEA -No clear etiology identified -Currently on 3 vasopressors with fixed pinpoint pupils -Echocardiogram today with EF of 20% -He appears to have a poor prognosis given the above -Management per primary ICU, internal medicine, and cardiology teams Nicole Palafox MD
[2023-08-31 15:46] LABS: Reticulocyte % 2.3 % (0.5-2.0)
[2023-08-31 16:58] LABS: INR 1.7 (<1.2); Partial Thromboplastin Time 40.4 sec (22.0-30.0); Prothrombin Time 17.7 sec (10.0-12.5)
--- NOTE | 2023-08-31 17:07 | P.CRDCN ---
History of Present Illness Consult date: 08/31/23 History of present illness: HISTORY OF PRESENTING ILLNESS 68-year-old patient presented to the hospital because of hemodynamic collapse. He was intubated in the ICU. History is limited Patient came from a senior care. He was sent for rehabilitation from a recent hospitalization from [facility]. He presented to the hospital because of pain in left lower extremity and subsequently found to have significant respiratory distress and hypoxic respiratory failure. After arrival to ICU patient and her cardiac arrest and went into pulseless electrical activity at 5:20 AM. CPR was initiated and patient was given epinephrine 3 along with bicarb pushes 5. Patient had undergone time of approximately 10 minutes. Patient has pancytopenia and blood cultures grew Klebsiella. A stat echo cardiac exam showed an EF of 20-25%, globally reduced severe LV dysfunction, apical hypokinesia. No significant valvular dysfunction. Troponin 0.1, lactate 3.5 WBC 0.7, hemoglobin 9, platelets 29 REVIEW OF SYSTEMS Could not be obtained as patient was intubated and sedated PHYSICAL EXAMINATION Vital signs reviewed. Head: Normocephalic. Eyes: Sclerae nonicteric. Neck: Brisk carotid upstroke, no jugular venous distention. Lungs: Clear to auscultation. Heart: Regular rate and rhythm, S1-S2, no S3, no murmur or rub. Abdomen: Soft nontender, positive bowel sounds no organomegaly. Extremities: No edema, intact distal pulses. Neuro: Alert, oritented, no focal deficits ASSESSMENT Septic shock PE a cardiac arrest, 10 minutes downtime, status post CPR and resuscitation as per ACS protocol. Currently on 3 pressors maxed out Acute hypoxic respiratory failure currently on vent support Pancytopenia On methotrexate therapy, concerns of bone marrow suppression Paroxysmal atrial fibrillation PLAN Currently patient is on 3 pressors and is maxed out and continues to be hypotensive. At this time the prognosis is extremely guarded. Consider neurologic consult to evaluate for hypoxic encephalopathic injury. Supportive care and vent management as per ICU team Past Medical History Past Medical History: Atrial Fibrillation, Cancer, Diabetes Mellitus, Hyperlipidemia, Hypertension, Osteoarthritis (OA), Skin Disorder Additional Past Medical History / Comment(s): has numbness virgilio legs-rt leg worse,hx basal cell CA removed from face,prostate CA-no radiation or chemo,fx back-in brace for 3 mos History of Any Multi-Drug Resistant Organisms: None Reported Past Surgical History: Joint Replacement, Orthopedic Surgery, Prostate Surgery, Tonsillectomy Additional Past Surgical History / Comment(s): rt hip replacement,prostate ctomy,retinal reattachment,rt knee cartilage removed Past Anesthesia/Blood Transfusion Reactions: No Reported Reaction Additional Past Anesthesia/Blood Transfusion Reaction / Comment(s): no hx blood transfusion Smoking Status: Former smoker - Past Family History Mother Family Medical History: No Reported History Daughter(s) Family Medical History: No Reported History Medications and Allergies Home Medications Medication Instructions Recorded Confirmed Type Fluticasone Nasal Maybee [Flonase 1 spr EA NOSTRIL DAILY@0800 11/14/18 08/30/23 History Nasal Maybee] Losartan Potassium [Cozaar] 100 mg PO DAILY@0800 11/14/18 08/30/23 History hydrALAZINE HCL [Apresoline] 50 mg PO BID@0800,1700 11/14/18 08/30/23 History Acetaminophen Tab [Tylenol] 650 mg PO Q4H PRN 08/30/23 08/30/23 History Clobetasol E 0.05% Cream 1 applic TOPICAL BID@0800,1700 08/30/23 08/30/23 History Fluconazole [Diflucan] 100 mg PO DAILY@0800 08/30/23 08/30/23 History Furosemide [Lasix] 40 mg PO DAILY@0800 08/30/23 08/30/23 History Insulin Aspart [NovoLOG] 10 units SQ AC-TID 08/30/23 08/30/23 History Insulin Aspart [NovoLOG] See Protocol SQ ACHS 08/30/23 08/30/23 History Insulin Detemir (Levemir) [Levemir] 30 unit SQ HS 08/30/23 08/30/23 History Magnesium Hydroxide [Milk of 7,200 mg PO DIRECTED PRN 08/30/23 08/30/23 History Magnesia Concentrate] Melatonin 5 mg PO HS 08/30/23 08/30/23 History Na Phos,M-B/Na Phos,Di-Ba [Fleet 133 ml RECTAL DIRECTED PRN 08/30/23 08/30/23 History Adult] Rivaroxaban [Xarelto] 20 mg PO DAILY@0800 08/30/23 08/30/23 History bisacodyL [Dulcolax] 10 mg RECTAL Q24H PRN 08/30/23 08/30/23 History dilTIAZem HCL [Cardizem LA] 180 mg PO DAILY@0800 08/30/23 08/30/23 History methylPREDNISolone [Medrol] 16 mg PO DAILY@0800 08/30/23 08/30/23 History polyethylene glycoL 3350 [Miralax] 17 gm PO BID@0800,1700 08/30/23 08/30/23 History Allergies Allergy/AdvReac Type Severity Reaction Status Date / Time No Known Allergies Allergy Verified 08/30/23 22:16 Physical Exam Vitals: Vital Signs Temp Pulse Pulse Resp BP Pulse Ox FiO2 08/31/23 16:30 90 25 H 74/38 08/31/23 16:15 90 26 H 77/47 08/31/23 16:03 93 27 H 08/31/23 16:00 92 21 66/41 08/31/23 15:53 93 25 H 08/31/23 15:49 100 08/31/23 15:45 93 25 H 71/38 08/31/23 15:30 94 25 H 66/35 08/31/23 15:15 94 25 H 84/46 08/31/23 15:00 96 25 H 73/50 08/31/23 14:45 96 24 69/38 08/31/23 14:30 95 25 H 71/51 08/31/23 14:15 95 31 H 69/46 08/31/23 14:00 89 26 H 64/37 08/31/23 13:45 84 27 H 80/48 08/31/23 13:30 89 25 H 08/31/23 13:15 96 25 H 80/48 08/31/23 13:00 97 25 H 100 08/31/23 12:45 97 24 08/31/23 12:30 98 26 H 08/31/23 12:22 98 28 H 08/31/23 12:15 98 22 94/47 84 L 08/31/23 12:11 95 28 H 08/31/23 12:07 100 08/31/23 12:00 98.2 F 99 26 H 100 08/31/23 11:45 99 27 H 08/31/23 11:30 101 H 25 H 08/31/23 11:15 101 H 75/58 08/31/23 11:00 100 21 84/57 08/31/23 10:45 101 H 32 H 84/57 08/31/23 10:30 100 24 84/57 08/31/23 10:15 98 23 84/57 08/31/23 10:00 96 22 100 08/31/23 09:45 94 23 08/31/23 09:30 93 24 77/47 08/31/23 09:00 95 23 88/47 72 L 100 08/31/23 08:54 100 08/31/23 08:30 99.4 F 97 24 88/47 86 L 08/31/23 08:00 98 90 24 94/60 90 L 100 08/31/23 07:30 93 21 84/51 87 L 08/31/23 07:00 224 H 142 H 59/24 89 L 08/31/23 06:30 97 18 82/61 94 L 08/31/23 06:00 144 H 17 106/69 94 L 08/31/23 05:54 100 08/31/23 05:37 95 85/34 99 08/31/23 05:36 101 H 92/30 99 08/31/23 05:35 97 110/38 100 08/31/23 05:30 103 H 25 H 84/44 95 08/31/23 05:00 99 23 89/27 96 08/31/23 04:40 80 08/31/23 04:36 23 08/31/23 04:00 88 85/34 99 08/31/23 03:45 85 30/10 92 L 08/31/23 03:20 80 08/31/23 03:18 96 110/38 100 08/31/23 02:45 95 117/62 96 08/31/23 02:30 91 70/42 100 08/31/23 02:15 85 60/34 100 08/31/23 02:00 87 80/34 100 08/31/23 01:45 80 75/39 100 08/31/23 01:30 86 84/50 96 100 08/31/23 01:29 100 08/31/23 00:45 65/40 08/31/23 00:30 56/38 08/31/23 00:00 72/46 95 08/30/23 23:30 20 82/46 94 L 08/30/23 23:00 84 20 88/46 96 01/19/24 22:29 86 22 74/41 94 L 08/30/23 22:00 80/50 88 L 08/30/23 21:30 83 20 83/21 90 L 08/30/23 21:24 99.1 F 90 20 82/47 90 L Intake and Output 08/31/23 08/31/23 08/31/23 06:59 14:59 22:59 Intake Total 485.523 9480.725 690 Output Total 40 0 Balance 659.068 8076.725 690 Intake: IV 2971 306 Dextrose 5% in Water 1, 950 300 000 ml @ 100 mls/hr IV . [id number] [facility] with Sodium Bicarb (1 Meq/ml) 150 ml Rx#:[id number] Pressure Bag - 0.9 sodium 21 6 chloride Sodium Chloride 0.9% 1, 2000 000 ml @ 999 mls/hr IV . Q1H1M ONE Rx#:[id number] Intake, IV Titration 639.056 6601.725 384 Amount Anidulafungin 200 mg In 168 Sodium Chloride 0.9% 200 ml @ 84 mls/hr IVPB ONCE ONE Rx#:[id number] Cefepime 2 gm In Sodium 25 50 Chloride 0.9% 100 ml @ 25 mls/hr IVPB Q8H [facility] Rx#: [id number] EPINEPHrine 16 mg In 249.022 Dextrose 5% in Water 250 ml @ 0.03 MCG/KG/MIN 3. 674 mls/hr IV .Q24H [facility] Rx#:[id number] EPINEPHrine 4 mg In 7.593 492.407 Dextrose 5% in Water 250 ml @ 0.03 MCG/KG/MIN 14. 696 mls/hr IV .Q17H1M [facility] Rx#:[id number] Norepinephrine 32 mg In 53.704 196.296 Sodium Chloride 0.9% 218 ml @ 0.03 MCG/KG/MIN 1. 837 mls/hr IV .Q24H [facility] Rx#:[id number] Norepinephrine 4 mg In 41.891 Sodium Chloride 0.9% 250 ml @ 0.03 MCG/KG/MIN 14. 932 mls/hr IV .Q17H1M [facility] Rx#:[id number] Sodium Chloride 0.9% 1, 75 000 ml @ 999 mls/hr IV . Q1H1M [facility] Rx#:[id number] Vancomycin 2,000 mg In 167 334 Sodium Chloride 0.9% 500 ml 500 ml @ 167 mls/hr IVPB Q12H [facility] Rx#: [id number] Vasopressin 60 unit In 0.077 Sodium Chloride 0.9% 150 ml @ 0.03 UNITS/MIN 4.59 mls/hr IV .Q24H [facility] Rx#: [id number] propofoL 1,000 mg In 27.433 Empty Bag 1 bag @ 15 MCG/ KG/MIN 11.757 mls/hr IV . Q8H31M [facility] Rx#:[id number] Output: Urine 40 0 Other: Voiding Method Indwelling Catheter Indwelling Catheter Weight 130.635 kg ABP, PAP, CO, CI - Last 8 Hours Arterial Blood Pressure 53/37 Arterial Blood Pressure 53/37 Arterial Blood Pressure 62/42 Arterial Blood Pressure 58/39 Arterial Blood Pressure 59/40 Arterial Blood Pressure 61/41 Arterial Blood Pressure 65/43 Arterial Blood Pressure 66/44 Arterial Blood Pressure 69/45 Arterial Blood Pressure 63/41 Arterial Blood Pressure 57/37 Arterial Blood Pressure 62/41 Arterial Blood Pressure 73/45 Arterial Blood Pressure 74/49 Arterial Blood Pressure 72/48 Arterial Blood Pressure 71/47 Arterial Blood Pressure 60/41 Arterial Blood Pressure 72/47 Arterial Blood Pressure 69/43 Arterial Blood Pressure 74/47 Arterial Blood Pressure 74/47 Arterial Blood Pressure 78/49 Arterial Blood Pressure 71/45 Arterial Blood Pressure 78/46 Arterial Blood Pressure 80/48 Arterial Blood Pressure 80/47 Arterial Blood Pressure 76/47 Results 08/31/23 05:55 08/31/23 05:55 Cardiac Enzymes 08/30/23 08/30/23 08/31/23 Range/Units 22:05 22:57 09:05 AST 40 (17-59) U/L Lactate Dehydrogenase (120-246) U/L Troponin I 0.041 H* 0.066 H* (0.000-0.034) ng/mL 08/31/23 08/31/23 Range/Units 09:05 15:48 AST (17-59) U/L Lactate Dehydrogenase 295 H (120-246) U/L Troponin I 0.113 H* (0.000-0.034) ng/mL Coagulation 08/30/23 08/31/23 08/31/23 Range/Units 22:05 09:05 15:48 PT 14.3 H 16.5 H 17.7 H (10.0-12.5) sec APTT 22.3 37.5 H 40.4 H (22.0-30.0) sec CBC 08/30/23 08/31/23 08/31/23 Range/Units 22:42 04:45 05:55 WBC 0.6 L* 1.1 L* 0.7 L* (3.8-10.6) k/uL RBC 2.55 L 2.43 L 2.38 L (4.30-5.90) m/uL Hgb 8.4 L 8.2 L 7.8 L (13.0-17.5) gm/dL Hct 24.6 L 24.1 L 23.4 L (39.0-53.0) % Plt Count 33 L 34 L 29 L (150-450) k/uL Comprehensive Metabolic Panel 08/30/23 08/31/23 08/31/23 Range/Units 22:05 04:45 05:55 Sodium 133 L 132 L 138 (137-145) mmol/L Potassium 4.6 4.5 4.5 (3.5-5.1) mmol/L Chloride 108 H 111 H 110 H (98-107) mmol/L Carbon Dioxide 22 20 L 26 (22-30) mmol/L BUN 38 H 39 H 40 H (9-20) mg/dL Creatinine 0.75 1.04 1.05 (0.66-1.25) mg/dL Glucose 68 L 168 H 139 H (74-99) mg/dL Calcium 7.6 L 6.9 L 6.6 L (8.4-10.2) mg/dL AST 40 (17-59) U/L ALT 44 (4-49) U/L Alkaline Phosphatase 58 (38-126) U/L Total Protein 4.0 L (6.3-8.2) g/dL Albumin 1.9 L (3.5-5.0) g/dL Current Medications Generic Name Dose Route Start Last Admin Trade Name Freq PRN Reason Stop Dose Admin Albuterol/Ipratropium 3 ml 08/31/23 12:00 08/31/23 15:53 Ipratropium-Albuterol 3 Ml Neb INHALATION 3 ml RT-Q4H [facility] Administration Chlorhexidine Gluconate 15 ml 08/31/23 09:00 08/31/23 09:35 Chlorhexidine Gluconate 15 Ml Cup MUCOUS MEM 15 ml BID [facility] Administration Filgrastim-Sndz 480 mcg 08/31/23 18:00 08/31/23 13:29 Filgrastim-Sndz 480 Mcg/0.8 Ml Syringe SQ 480 mcg DAILY@1800 [facility] Administration Hydrocortisone Sodium Succinate 100 mg 08/31/23 08:30 08/31/23 16:27 Hydrocortisone Succinate 100 Mg/2 Ml Vial IV 100 mg Q8HR [facility] Administration Norepinephrine Bitartrate 32 250 mls @ 1.837 mls/hr 08/31/23 02:30 08/31/23 10:21 mg/ Sodium Chloride IV 09/01/23 02:29 1 mcg/kg/min .Q24H ONE 61.235 mls/hr Administration Protocol 0.03 MCG/KG/MIN Vasopressin 60 unit/ Sodium 153 mls @ 4.59 mls/hr 08/31/23 04:15 08/31/23 05:01 Chloride IV 0.04 units/min .Q24H [facility] 6.12 mls/hr Titration Protocol 0.03 UNITS/MIN Anidulafungin 100 mg/ Sodium 100 mls @ 84 mls/hr 09/01/23 09:00 Chloride IVPB DAILY [facility] Protocol Sodium Chloride 1,000 mls @ 150 mls/hr 08/31/23 10:00 08/31/23 10:21 Saline 0.9% IV 150 mls/hr .Q6H40M [facility] Administration Epinephrine HCl 16 mg/ 250 mls @ 3.674 mls/hr 08/31/23 10:15 08/31/23 14:38 Dextrose/Water IV 0.5 mcg/kg/min .Q24H [facility] 61.235 mls/hr Administration Protocol 0.03 MCG/KG/MIN Propofol 1,000 mg/ IV Solution 100 mls @ 11.757 mls/hr 08/31/23 10:18 08/31/23 11:33 IV 15 mcg/kg/min .Q8H31M [facility] 11.757 mls/hr Administration Protocol 15 MCG/KG/MIN Vancomycin HCl 2,000 mg/ 500 mls @ 167 mls/hr 08/31/23 14:00 08/31/23 13:24 Sodium Chloride IVPB 167 mls/hr Q12H [facility] Administration Cefepime HCl 2 gm/ Sodium 100 mls @ 25 mls/hr 08/31/23 14:00 08/31/23 13:29 Chloride IVPB 25 mls/hr Q8H [facility] Administration Miscellaneous Information 1 each 08/31/23 02:30 Vancomycin Iv Per Pharmacy 1 Each Misc MISCELLANE DIRECTED PRN Per Protocol Protocol Miscellaneous Information 1 each 08/31/23 04:43 Potassium Replacement Protocol 1 Each Misc MISCELLANE DAILY PRN Per Protocol Miscellaneous Information 1 each 08/31/23 04:43 Magnesium Replacement Protocol 1 Each Misc MISCELLANE DAILY PRN Per Protocol Protocol Naloxone HCl 0.2 mg 08/31/23 02:26 Naloxone 0.4 Mg/Ml 1 Ml Vial IV Q2M PRN Opioid Reversal Intake and Output 08/31/23 08/31/23 08/31/23 06:59 14:59 22:59 Intake Total 333.133 4534.725 690 Output Total 40 0 Balance 730.476 2827.725 690 Intake: IV 2971 306 Dextrose 5% in Water 1, 950 300 000 ml @ 100 mls/hr IV . [id number] [facility] with Sodium Bicarb (1 Meq/ml) 150 ml Rx#:[id number] Pressure Bag - 0.9 sodium 21 6 chloride Sodium Chloride 0.9% 1, 2000 000 ml @ 999 mls/hr IV . Q1H1M [facility] Rx#:[id number] Intake, IV Titration 079.954 9615.725 384 Amount Anidulafungin 200 mg In 168 Sodium Chloride 0.9% 200 ml @ 84 mls/hr IVPB ONCE [facility] Rx#:[id number] Cefepime 2 gm In Sodium 25 50 Chloride 0.9% 100 ml @ 25 mls/hr IVPB Q8H [facility] Rx#: [id number] EPINEPHrine 16 mg In 249.022 Dextrose 5% in Water 250 ml @ 0.03 MCG/KG/MIN 3. 674 mls/hr IV .Q24H [facility] Rx#:[id number] EPINEPHrine 4 mg In 7.593 492.407 Dextrose 5% in Water 250 ml @ 0.03 MCG/KG/MIN 14. 696 mls/hr IV .Q17H1M [facility] Rx#:[id number] Norepinephrine 32 mg In 53.704 196.296 Sodium Chloride 0.9% 218 ml @ 0.03 MCG/KG/MIN 1. 837 mls/hr IV .Q24H [facility] Rx#:[id number] Norepinephrine 4 mg In 41.891 Sodium Chloride 0.9% 250 ml @ 0.03 MCG/KG/MIN 14. 932 mls/hr IV .Q17H1M [facility] Rx#:[id number] Sodium Chloride 0.9% 1, 75 000 ml @ 999 mls/hr IV . Q1H1M [facility] Rx#:[id number] Vancomycin 2,000 mg In 167 334 Sodium Chloride 0.9% 500 ml 500 ml @ 167 mls/hr IVPB Q12H [facility] Rx#: [id number] Vasopressin 60 unit In 0.077 Sodium Chloride 0.9% 150 ml @ 0.03 UNITS/MIN 4.59 mls/hr IV .Q24H [facility] Rx#: [id number] propofoL 1,000 mg In 27.433 Empty Bag 1 bag @ 15 MCG/ KG/MIN 11.757 mls/hr IV . Q8H31M [facility] Rx#:[id number] Output: Urine 40 0 Other: Voiding Method Indwelling Catheter Indwelling Catheter Weight 130.635 kg Patient Weight 09/01/23 06:59 Weight 130.635 kg 08/31/23 05:55 08/31/23 05:55
[2023-08-31 17:55] LABS: % Iron Saturation 7.14 (15.00-50.00)
[2023-08-31] MEDS ORDERED: FILGRASTIM-SNDZ 480 MCG/0.8 ML SYRINGE SQ SCH (18:00)
[2023-08-31 18:39] VITALS: PULSE 3; RESP 0
[2023-08-31 20:07] VITALS: BP 77/31
[2023-09-01] MEDS ORDERED: ANIDULAFUNGIN 100 MG in SODIUM CHLORIDE 0.9% 100 ML IVPB SCH (09:00)
--- NOTE | 2023-09-01 13:20 | P.DS ---
Providers Date of admission: 08/31/23 02:26 Expected date of discharge: 09/01/23 Attending physician: Kavita Prajapati Consults: 08/31/23 02:26 Consult Physician Stat Consulting Provider: Cesia Salas Consult Reason/Comments: icu patient Do you want consulting provider notified?: Yes 08/31/23 09:07 Consult Physician Routine Consulting Provider: Malvin Bernard Consult Reason/Comments: Elevated troponin Do you want consulting provider notified?: Yes 08/31/23 09:08 Consult Physician Routine Consulting Provider: Aidan Franco Consult Reason/Comments: Pancytopenia Do you want consulting provider notified?: Yes 08/31/23 09:09 Consult Physician Routine Consulting Provider: Amado Kasper Consult Reason/Comments: sepsis Do you want consulting provider notified?: Yes Primary care physician: Juan Tran Hospital Course: Discharge diagnoses; septic shock. Pancytopenia PEA cardiac arrest with return of spontaneous circulation within 10 minutes. Acute hypoxic respiratory failure, currently intubated on mechanical ventilator Paroxysmal A. fib Bullous pemphigoid disease History of erosive gastritis History of Hypertension History of prostate cancer Hospital course; patient is a 68-year-old gentleman past medical history significant for atrial fibrillation, bullous pemphigoid, hypertension who initially presented to the hospital for increasing weakness from intermediate. In the ER, patient found to be in significant respiratory distress and was intubated. Patient was started on IV pressors and IV antibiotics and was transferred to ICU. Patient had a C ODE BLUE called in ICU for PEA. The patient had CPR and was given epinephrine IV push 3 and sodium bicarbonate IV push 5. The patient subsequently had ROSC 10 minutes. He also developed A. fib for which an amiodarone 300 mg bolus was given. The patient was continued on Levophed and vasopressin infusions with epinephrine and sodium bicarbonate infusions initiated. Initial lab work done in the ER showed WBC 0.6, hemoglobin 8.4, platelet count 33, sodium 133, potassium 4.6, BUN 30, creatinine 0.75, lactate 2.3 calcium 7.6 Influenza A not detected Influenza B not detected RSV not detected COVID-19 not detected EKG done in the ER showed heart rate of 88, no ST segment elevation or depression seen, no T-wave inversions seen. X-ray hip showed right total hip arthroplasty Chest x-ray done in the ER showed new bibasilar acute infiltrate,/atelectasis X-ray right femur showed no acute fracture X-ray right tibia-fibula showed no acute fracture Patient admitted to ICU under internal medicine service Patient was being seen by cardiology, critical care, hematology oncology. Patient was maxed out on number of pressors. Patient hemodynamically remained unstable. Patient clinical condition and remains very critical. Family discussed with critical care and decided to transition to comfort care. Patient was pronounced on 08/31/23 at 1813 Plan - Discharge Summary Discharge Rx Participant: No New Discharge Prescriptions: No Action hydrALAZINE HCL [Apresoline] 50 mg PO BID@0800,1700 Losartan Potassium [Cozaar] 100 mg PO DAILY@0800 Fluticasone Nasal Comer [Flonase Nasal Comer] 1 spr EA NOSTRIL DAILY@0800 Acetaminophen Tab [Tylenol] 650 mg PO Q4H PRN PRN Reason: Fever And/ Or Pain dilTIAZem HCL [Cardizem LA] 180 mg PO DAILY@0800 Fluconazole [Diflucan] 100 mg PO DAILY@0800 Insulin Aspart [NovoLOG] See Protocol SQ ACHS Insulin Aspart [NovoLOG] 10 units SQ AC-TID Insulin Detemir (Levemir) [Levemir] 30 unit SQ HS methylPREDNISolone [Medrol] 16 mg PO DAILY@0800 polyethylene glycoL 3350 [Miralax] 17 gm PO BID@0800,1700 Rivaroxaban [Xarelto] 20 mg PO DAILY@0800 Clobetasol E 0.05% Cream 1 applic TOPICAL BID@0800,1700 bisacodyL [Dulcolax] 10 mg RECTAL Q24H PRN PRN Reason: Constipation Furosemide [Lasix] 40 mg PO DAILY@0800 Magnesium Hydroxide [Milk of Magnesia Concentrate] 7,200 mg PO DIRECTED PRN PRN Reason: 2 days no BM Melatonin 5 mg PO HS Na Phos,M-B/Na Phos,Di-Ba [Fleet Adult] 133 ml RECTAL DIRECTED PRN PRN Reason: Constipation Discharge Medication List Fluticasone Nasal Comer [Flonase Nasal Comer] 1 spr EA NOSTRIL DAILY@0800 11/14/18 [History] Losartan Potassium [Cozaar] 100 mg PO DAILY@0800 11/14/18 [History] hydrALAZINE HCL [Apresoline] 50 mg PO BID@0800,1700 11/14/18 [History] Acetaminophen Tab [Tylenol] 650 mg PO Q4H PRN 08/30/23 [History] Clobetasol E 0.05% Cream 1 applic TOPICAL BID@0800,1700 08/30/23 [History] Fluconazole [Diflucan] 100 mg PO DAILY@0800 08/30/23 [History] Furosemide [Lasix] 40 mg PO DAILY@0808/30/23 [History] Insulin Aspart [NovoLOG] 10 units SQ AC-TID 08/30/23 [History] Insulin Aspart [NovoLOG] See Protocol SQ ACHS 08/30/23 [History] Insulin Detemir (Levemir) [Levemir] 30 unit SQ HS 08/30/23 [History] Magnesium Hydroxide [Milk of Magnesia Concentrate] 7,200 mg PO DIRECTED PRN 08/30/23 [History] Melatonin 5 mg PO HS 08/30/23 [History] Na Phos,M-B/Na Phos,Di-Ba [Fleet Adult] 133 ml RECTAL DIRECTED PRN 08/30/23 [History] Rivaroxaban [Xarelto] 20 mg PO DAILY@0808/30/23 [History] bisacodyL [Dulcolax] 10 mg RECTAL Q24H PRN 08/30/23 [History] dilTIAZem HCL [Cardizem LA] 180 mg PO DAILY@0800 08/30/23 [History] methylPREDNISolone [Medrol] 16 mg PO DAILY@0808/30/23 [History] polyethylene glycoL 3350 [Miralax] 17 gm PO BID@0800,1700 08/30/23 [History] Follow up Appointment(s)/Referral(s): Juan Tran MD [Primary Care Provider] - 1-2 days Discharge Disposition: - Preliminary Cause of Preliminary Cause of : Septic shock
== END 2023-08-31 19:50 | disposition expired | DRG 871 ==
LOC: EC 21:21 → 2SICU 08-31 02:26
PROVIDERS: ADMIT Hospitalist; ATTEND Hospitalist
PROC: 5A1935Z Respiratory Ventilation, Less than 24 Consecutive Hours (ICD-10-PCS; principal; 2023-08-31)
PROC: 5A12012 Performance of Cardiac Output, Single, Manual (ICD-10-PCS; 2023-08-31)
PROC: 0BH17EZ Insertion of Endotracheal Airway into Trachea, Via Natural or Artificial Opening (ICD-10-PCS; 2023-08-31)
PROC: 3E033XZ Introduction of Vasopressor into Peripheral Vein, Percutaneous Approach (ICD-10-PCS; 2023-08-31)
PROC: 02HV33Z Insertion of Infusion Device into Superior Vena Cava, Percutaneous Approach (ICD-10-PCS; 2023-08-31)
PROC: 06HM33Z Insertion of Infusion Device into Right Femoral Vein, Percutaneous Approach (ICD-10-PCS; 2023-08-31)
DX: A41.89 Other specified sepsis (principal); J96.01 Acute respiratory failure with hypoxia; R65.21 Severe sepsis with septic shock; D61.818 Other pancytopenia; L12.0 Bullous pemphigoid; J98.11 Atelectasis; Z11.52 Encounter for screening for COVID-19; D50.0 Iron deficiency anemia secondary to blood loss (chronic); I10 Essential (primary) hypertension; I48.0 Paroxysmal atrial fibrillation; I08.1 Rheumatic disorders of both mitral and tricuspid valves; E11.9 Type 2 diabetes mellitus without complications; Z79.4 Long term (current) use of insulin; M51.16 Intervertebral disc disorders with radiculopathy, lumbar region; M54.31 Sciatica, right side; I46.8 Cardiac arrest due to other underlying condition; E78.5 Hyperlipidemia, unspecified; E88.2 Lipomatosis, not elsewhere classified; Z51.5 Encounter for palliative care; M48.061 Spinal stenosis, lumbar region without neurogenic claudication; G89.29 Other chronic pain; M21.371 Foot drop, right foot; Z87.19 Personal history of other diseases of the digestive system; Z79.01 Long term (current) use of anticoagulants; Z79.899 Other long term (current) drug therapy; Z85.46 Personal history of malignant neoplasm of prostate; Z85.828 Personal history of other malignant neoplasm of skin; Z87.891 Personal history of nicotine dependence; Z96.641 Presence of right artificial hip joint; Z98.1 Arthrodesis status
CPT/HCPCS: 31500; 36415; 36556; 51702; 71045; 73501; 80048; 80053; 80204; 81001; 82607; 82728; 82746; 82805; 83010; 83540; 83550; 83605; 83615; 83735; 83880; 83921; 84145; 84443; 84484; 85025; 85027; 85045; 85384; 85610; 85730; 87040; 87070; 87077; 87186; 87205; 87636; 93005; 93306; 94002; 94640; 96365; 96366; 96368; 96375; 99291; 99292